=== PATIENT | male | born 1955 | race Caucasian/White ===

== ENCOUNTER 2020-07-17 14:01 | Inpatient (IN) | payer MEDICARE, BC ==
[2020-07-17] MEDS ORDERED: ALBUTEROL NEBULIZED 2.5 MG/3 ML INHALATION STA (14:09)
[2020-07-17 14:21] LABS: Glucose,Whole Blood 218 mg/dL (75-99)
[2020-07-17 14:26] LABS: Basophils # (A) 0.1 k/uL (0-0.2); Basophils % (A) 1 %; Eosinophils # (A) 0.3 k/uL (0-0.7); Eosinophils % (A) 2 %; HCT 37.4 % (39.0-53.0); Lymphocytes % (A) 30 %; MCH 31.8 pg (25.0-35.0); MCV 99.5 fL (80.0-100.0); Mean Platelet Volume 7.9; Monocytes # (A) 0.4 k/uL (0-1.0); Monocytes % (A) 3 %; Neutrophils # (A) 8.2 k/uL (1.3-7.7); Neutrophils % (A) 62 %; Platelet Count 252 k/uL (150-450); RBC 3.76 m/uL (4.30-5.90); RDW 14.2 % (11.5-15.5); WBC 13.2 k/uL (3.8-10.6)
[2020-07-17 14:34] LABS: ALT 228 U/L (4-49); AST 337 U/L (17-59); African American GFR (CKD) >90 (>60 ml/min/1.73 sqM); Albumin 3.6 g/dL (3.5-5.0); Alcohol <10 mg/dL; Alkaline Phosphatase 93 U/L (38-126); Anion Gap 7 mmol/L; Blood Urea Nitrogen 22 mg/dL (9-20); Calcium 8.6 mg/dL (8.4-10.2); Carbon Dioxide 27 mmol/L (22-30); Chloride 101 mmol/L (98-107); Creatine Kinase 248 U/L (55-170); Glucose 177 mg/dL (74-99); Non-African American GFR(CKD) 89 (>60 ml/min/1.73 sqM); Potassium 4.1 mmol/L (3.5-5.1); Sodium 135 mmol/L (137-145); Total Bilirubin 0.5 mg/dL (0.2-1.3); Total Protein 6.4 g/dL (6.3-8.2)
[2020-07-17] MEDS ORDERED: EPINEPHrine 10 ML SYRINGE (0.1 MG/ML) ONE (14:43)
[2020-07-17 14:46] LABS: INR 1.1 (<1.2); Partial Thromboplastin Time 22.5 sec (22.0-30.0); Prothrombin Time 11.1 sec (9.0-12.0)
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
[2020-07-17] MEDS ORDERED: ETOMIDATE 2 MG/ML 10 ML VIAL ONE (15:41)
[2020-07-17] MEDS ORDERED: ROCURONIUM 10 MG/ML (10 ML VIAL) IV ONE (15:41)
[2020-07-17 15:45] LABS: Basophils # (A) 0.1 k/uL (0-0.2); Basophils % (A) 1 %; Eosinophils # (A) 0.2 k/uL (0-0.7); Eosinophils % (A) 1 %; HCT 27.6 % (39.0-53.0); Lymphocytes # (A) 3.5 k/uL (1.0-4.8); Lymphocytes % (A) 18 %; MCH 32.9 pg (25.0-35.0); MCHC 32.3 g/dL (31.0-37.0); MCV 101.7 fL (80.0-100.0); Macrocytosis Slight; Monocytes # (A) 0.6 k/uL (0-1.0); Monocytes % (A) 3 %; Neutrophils # (A) 14.9 k/uL (1.3-7.7); Neutrophils % (A) 76 %; Platelet Count 212 k/uL (150-450); RBC 2.71 m/uL (4.30-5.90); RDW 13.8 % (11.5-15.5); WBC 19.5 k/uL (3.8-10.6)
[2020-07-17 15:49] LABS: HGB 8.9 gm/dL (13.0-17.5)
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
[2020-07-17 16:29] LABS: ABG Base Excess -3.3 mmol/L; ABG HCO3 25 mmol/L (21-25); ABG Oxygen Saturation 99.8 % (94-97); ABG PCO2 68 mmHg (35-45); ABG PO2 176 mmHg (83-108); ABG TCO2 27 mmol/L (19-24); Allen Test Performed? Yes
[2020-07-17 16:30] LABS: ABG PH 7.18 (7.35-7.45)
--- NOTE | 2020-07-17 16:39 | XR ---
EXAMINATION TYPE: XR chest 1V confirm line [facility] DATE OF EXAM: 07/17/2020 COMPARISON: Chest x-ray and CT earlier today. HISTORY: Post intubation. TECHNIQUE: Single portable frontal supine view of the chest is obtained. FINDINGS: Endotracheal tube terminates at mid clavicular level, approximately 4 to 5 cm above maynor . Orogastric tube projects below diaphragm. Low lung volumes with elevated left hemidiaphragm. Increa sing left basilar opacity. Diffuse right lung opacity may be projectional due to supine technique. Sm all right pleural fluid collection extends into apex on supine technique. No pneumothorax bilaterally . Excretion in the collecting systems is seen. Corrects less size stable and upper limits of normal. Displaced posterior right sixth and eighth rib fractures noted. Additional rib fractures noted on recent CT. IMPRESSION: 1. New endotracheal and orogastric tubes satisfactory in position. 2. Low lung volumes. Persistent small right pleural fluid collection. Worsening left basilar atelecta sis. Persistent right lung edema and/or atelectasis.
[2020-07-17] MEDS ORDERED: MIDAZOLAM 1 MG/ML 5 ML VIAL IV STA (16:56)
[2020-07-17] MEDS ORDERED: MIDAZOLAM 2 MG/2 ML VIAL IV STA (16:58)
[2020-07-17] MEDS ORDERED: NOREPINEPHRINE 4 MG in SODIUM CHLORIDE 0.9% 250 ML IV ONE (17:00)
[2020-07-17] MEDS ORDERED: NALOXONE 0.4 MG/ML 1 ML VIAL IV PRN (17:00)
[2020-07-17] MEDS ORDERED: MIDAZOLAM 2 MG/2 ML VIAL IV PRN (17:03)
--- NOTE | 2020-07-17 17:03 | XR ---
EXAMINATION TYPE: XR pelvis AP view DATE OF EXAM: 07/17/2020 COMPARISON: Today HISTORY: Check line placement TECHNIQUE: Single view FINDINGS: There is apparent right femoral catheter with the tip in the right iliac vein. There is con trast in the urinary bladder. There is bilateral hip prosthesis. I see no evidence of pelvic fracture . IMPRESSION: Catheter placement with catheter tip apparently in the right iliac vein. There is no cont rast for verification.
[2020-07-17] MEDS: fentaNYL (PF) 50 MCG/ML 2 ML AMP IVP PRN ×2 (17:04→17:55)
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
[2020-07-17] MEDS ORDERED: propofoL 100 ML IV ONE (17:49)
[2020-07-17 17:56] LABS: Amphetamine Screen,Urine Not Detected (NotDetected); Barbiturate Screen,Urine Not Detected (NotDetected); Benzodiazepines Screen,Urine Not Detected (NotDetected); Cocaine Screen,Urine Not Detected (NotDetected); Methadone Screen, Urine Not Detected (NotDetected); Opiate Screen,Urine Not Detected (NotDetected); Oxycodone Screen, Urine Not Detected (NotDetected); Phencyclidine Screen,Urine Not Detected (NotDetected); Tricyclic Antidepressant,Urine Not Detected (NotDetected); Urn Cannabinoid Scrn Not Detected (NotDetected)
[2020-07-17 17:58] LABS: Appearance,Urine Cloudy (Clear); Bilirubin,Urine Negative (Negative); Blood,Urine Large (Negative); Color,Urine Light Red; Glucose,Urine (UA) Negative (Negative); Ketones,Urine Trace (Negative); Leukocyte Esterase,Urine Small (Negative); Nitrite,Urine Negative (Negative); Protein,Urine 2+ (Negative); RBC,Urine >182 /hpf (0-5); Urobilinogen,Urine <2.0 mg/dL (<2.0); WBC,Urine 147 /hpf (0-5)
[2020-07-17 18:01] LABS: Specific Gravity,Urine >1.050 (1.001-1.035)
[2020-07-17] MEDS ORDERED: TRANEXAMIC ACID 1,000 MG in SODIUM CHLORIDE 0.9% 100 ML IV STA (18:16)
[2020-07-17 18:25] LABS: Glucose,Whole Blood 254 mg/dL (75-99)
[2020-07-17] MEDS: NOREPINEPHRINE 32 MG in SODIUM CHLORIDE 0.9% 218 ML IV SCH (18:37)
[2020-07-17] MEDS ORDERED: SODIUM CHLORIDE 0.9% 1,000 ML IV ONE ×2 (18:54→22:39)
[2020-07-17] MEDS ORDERED: ALBUMIN HUMAN 25% 50 ML in EMPTY BAG 1 BAG IVPB ONE (18:55)
[2020-07-17] MEDS ORDERED: LIDOCAINE 1% INJ 10MG/ML (20 ML MDV) ONE (19:07)
[2020-07-17 19:47] LABS: Anisocytosis Slight; HCT 36.8 % (39.0-53.0); MCH 30.3 pg (25.0-35.0); MCHC 32.4 g/dL (31.0-37.0); Mean Platelet Volume 8.3; Platelet Count 211 k/uL (150-450); RBC 3.94 m/uL (4.30-5.90); RDW 17.7 % (11.5-15.5); WBC 28.2 k/uL (3.8-10.6)
[2020-07-17 19:53] LABS: ALT 164 U/L (4-49); AST 223 U/L (17-59); African American GFR (CKD) >90 (>60 ml/min/1.73 sqM); Albumin 2.7 g/dL (3.5-5.0); Alkaline Phosphatase 74 U/L (38-126); Anion Gap 6 mmol/L; Blood Urea Nitrogen 22 mg/dL (9-20); Calcium 7.4 mg/dL (8.4-10.2); Carbon Dioxide 22 mmol/L (22-30); Chloride 106 mmol/L (98-107); Glucose 246 mg/dL (74-99); Magnesium 1.5 mg/dL (1.6-2.3); Non-African American GFR(CKD) 80 (>60 ml/min/1.73 sqM); Potassium 4.5 mmol/L (3.5-5.1); Sodium 134 mmol/L (137-145); Total Bilirubin 1.7 mg/dL (0.2-1.3)
[2020-07-17 20:08] LABS: HGB 11.9 gm/dL (13.0-17.5); MCV 93.5 fL (80.0-100.0)
[2020-07-17] MEDS: SODIUM CHLORIDE 0.9% 50 ML with VASOPRESSIN 20 UNIT IVPB SCH ×2 (21:09)
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
[2020-07-17] MEDS: PANTOPRAZOLE 40 MG/10 ML VIAL IVP SCH (21:33)
[2020-07-17 21:52] LABS: ABG Base Excess -6.3 mmol/L; ABG HCO3 21 mmol/L (21-25); ABG Oxygen Saturation 95.8 % (94-97); ABG PCO2 51 mmHg (35-45); ABG PH 7.23 (7.35-7.45); ABG PO2 82 mmHg (83-108); ABG TCO2 23 mmol/L (19-24); Allen Test Performed? Yes
[2020-07-17] MEDS: PIPERACILLIN-TAZOBACTAM 3.375 GM in SODIUM CHLORIDE 0.9% 100 ML IVPB SCH (22:05)
[2020-07-17] MEDS: SODIUM CHLORIDE 0.9% 1,000 ML IV SCH (22:06)
[2020-07-18 00:02] LABS: Glucose,Whole Blood 216 mg/dL (75-99)
[2020-07-18] MEDS: INSULIN ASPART (NovoLOG) 100 UNIT/ML VIAL SQ SCH ×5 (00:06→19:58)
[2020-07-18] MEDS: MAGNESIUM SULFATE-D5W PMX 1 GM in DEXTROSE/WATER 1 100ML.BAG IVPB SCH ×4 (00:34→09:27)
[2020-07-18] MEDS: SODIUM CHLORIDE 0.9% 50 ML with VASOPRESSIN 20 UNIT IVPB SCH ×4 (00:43→15:42)
[2020-07-18 02:06] LABS: Anisocytosis Slight; HCT 32.6 % (39.0-53.0); HGB 11.2 gm/dL (13.0-17.5); MCH 31.4 pg (25.0-35.0); MCHC 34.3 g/dL (31.0-37.0); MCV 91.6 fL (80.0-100.0); Mean Platelet Volume 9.1; Platelet Count 172 k/uL (150-450); RBC 3.56 m/uL (4.30-5.90); RDW 18.5 % (11.5-15.5); WBC 17.5 k/uL (3.8-10.6)
[2020-07-18] MEDS: SODIUM CHLORIDE 0.9% 1,000 ML IV SCH ×4 (03:27→19:44)
[2020-07-18 04:58] LABS: ABG Base Excess -3.8 mmol/L; ABG HCO3 21 mmol/L (21-25); ABG Oxygen Saturation 96.5 % (94-97); ABG PCO2 32 mmHg (35-45); ABG PH 7.42 (7.35-7.45); ABG PO2 81 mmHg (83-108); ABG TCO2 22 mmol/L (19-24)
[2020-07-18] MEDS: PIPERACILLIN-TAZOBACTAM 3.375 GM in SODIUM CHLORIDE 0.9% 100 ML IVPB SCH ×3 (05:12→21:05)
[2020-07-18] MEDS: NOREPINEPHRINE 32 MG in SODIUM CHLORIDE 0.9% 218 ML IV SCH ×2 (05:12→18:03)
[2020-07-18 05:24] LABS: Allen Test Performed? no
[2020-07-18 05:36] LABS: Glucose,Whole Blood 242 mg/dL (75-99)
[2020-07-18 06:57] LABS: African American GFR (CKD) >90 (>60 ml/min/1.73 sqM); Anion Gap 9 mmol/L; Blood Urea Nitrogen 24 mg/dL (9-20); Calcium 7.7 mg/dL (8.4-10.2); Carbon Dioxide 17 mmol/L (22-30); Chloride 108 mmol/L (98-107); Glucose 231 mg/dL (74-99); Non-African American GFR(CKD) 78 (>60 ml/min/1.73 sqM); Potassium 5.2 mmol/L (3.5-5.1); Sodium 134 mmol/L (137-145)
[2020-07-18] MEDS: IPRATROPIUM-ALBUTEROL 3 ML NEB INHALATION SCH ×4 (07:08→20:03)
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
[2020-07-18] MEDS ORDERED: SODIUM CHLORIDE 0.9% 1,000 ML IV ONE (09:25)
--- NOTE | 2020-07-18 09:25 | XR ---
EXAMINATION TYPE: XR chest 1V portable DATE OF EXAM: 07/18/2020 COMPARISON: Prior chest x-ray and CT 07/17/2020 HISTORY: Intubated TECHNIQUE: Single frontal view of the chest is obtained. FINDINGS: Endotracheal tube is superimposed over appropriate position as is the orogastric tube. The re are overlying cardiac leads. No pneumothorax. Patchy bibasilar density persists. Cardiac mediastin al silhouette, pulmonary vascularity and celeste not significantly changed. IMPRESSION: Probable subsegmental basilar atelectatic changes, correlate to exclude pneumonia or annie ma, there is a right pleural effusion.
[2020-07-18] MEDS: LEVOTHYROXINE IVP 100 MCG/5 ML VIAL IV SCH (09:27)
[2020-07-18] MEDS: PANTOPRAZOLE 40 MG/10 ML VIAL IVP SCH (09:27)
[2020-07-18] MEDS: CHLORHEXIDINE GLUCONATE 15 ML CUP MUCOUS MEM SCH ×2 (09:27→21:04)
[2020-07-18 09:28] LABS: Anisocytosis Slight; HCT 30.6 % (39.0-53.0); HGB 10.4 gm/dL (13.0-17.5); MCH 30.8 pg (25.0-35.0); MCHC 33.9 g/dL (31.0-37.0); Mean Platelet Volume 8.5; Platelet Count 165 k/uL (150-450); RBC 3.36 m/uL (4.30-5.90); RDW 19.1 % (11.5-15.5); WBC 12.8 k/uL (3.8-10.6)
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
[2020-07-18 11:39] LABS: Glucose,Whole Blood 271 mg/dL (75-99)
--- NOTE | 2020-07-18 11:41 | XR ---
Left femur and left hip HISTORY: Leg shortening, pain Correlated to previous exam AP pelvis 07/17/2020 Frontal view of the left hip single image, frontal and lateral views of the left femur on 4 images Patient is status post left hip arthroplasty. Remodeling along the acetabulum is questioned, correlat ion with postop exam may be of benefit. Heterotopic new bone formation is present. There is thinning of the cortical bone along the lateral margin of the proximal left femur which is indeterminate. No a cute fracture or dislocation is evident. Some overlying metallic densities present over the soft tiss ues toward the midline. There are vascular calcifications present. Cross table lateral view is somewh at limited. Spurring present at the patellofemoral joint. There is postop change the opposite hip als o present. IMPRESSION: No acute abnormality. Additional findings above.
--- NOTE | 2020-07-18 12:36 | ECHOF ---
Referral Reason:hypotension MEASUREMENTS -------- HEIGHT: 165.1 cm WEIGHT: 108.0 kg BP: RVIDd: 3.8 cm (< 3.3) IVSd: 1.6 cm (0.6 - 1.1) LVIDd: 4.5 cm (3.9 - 5.3) LVPWd: 1.5 cm (0.6 - 1.1) IVSs: 1.9 cm LVIDs: 3.1 cm LVPWs: 1.6 cm Ao Diam: 3.5 cm (2.0 - 3.7) AV Cusp: 2.0 cm (1.5 - 2.6) MV EXCURSION: 19.523 mm (> 18.000) MV EF SLOPE: 60 mm/s (70 - 150) EPSS: 0.5 cm MV E Frank: 0.43 m/s MV DecT: 328 ms MV A Frank: 0.77 m/s MV E/A Ratio: 0.56 RAP: 5.00 mmHg RVSP: 21.36 mmHg FINDINGS -------- Undetermined rhythm. This was a techncally difficult study with suboptimal views, , Lumason utilized for enhancement of im ages. The left ventricular size is normal. There is moderate concentric left ventricular hypertrophy. O verall left ventricular systolic function is low-normal with, an EF between 50 - 55 %. The right ventricle is moderate to severely enlarged. The left atrial size is normal. The right atrial size is normal. The aortic root size is normal. There is no pericardial effusion. CONCLUSIONS -------- 1. This was a techncally difficult study with suboptimal views, , Lumason utilized for enhancement of images. 2. The left ventricular size is normal. 3. There is moderate concentric left ventricular hypertrophy. 4. Overall left ventricular systolic function is low-normal with, an EF between 50 - 55 %. 5. The right ventricle is moderate to severely enlarged. 6. The left atrial size is normal. 7. The right atrial size is normal. 8. There is no pericardial effusion. [employer]: Naz Kyle RDCS
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
[2020-07-18] MEDS ORDERED: IOPAMIDOL CONTRAST (ORAL USE) VIAL PO PRN (13:36)
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
[2020-07-18] MEDS: fentaNYL (PF) 50 MCG/ML 2 ML AMP IVP PRN ×2 (15:05→19:59)
[2020-07-18] MEDS: HYDROCORTISONE SUCCINATE 100 MG/2 ML VIAL IV SCH (15:45)
[2020-07-18 16:23] LABS: Glucose,Whole Blood 228 mg/dL (75-99)
[2020-07-18 17:46] LABS: Glucose,Whole Blood 255 mg/dL (75-99)
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
[2020-07-18 19:54] LABS: Glucose,Whole Blood 214 mg/dL (75-99)
[2020-07-18] MEDS ORDERED: INSULIN DETEMIR (LEVEMIR) 100 UNIT/ML SYR SQ SCH (21:00)
[2020-07-18 22:12] LABS: Anisocytosis Slight; HCT 25.6 % (39.0-53.0); MCH 30.5 pg (25.0-35.0); MCV 89.8 fL (80.0-100.0); Mean Platelet Volume 8.7; Platelet Count 136 k/uL (150-450); RBC 2.85 m/uL (4.30-5.90); RDW 18.8 % (11.5-15.5); WBC 10.9 k/uL (3.8-10.6)
[2020-07-18 22:40] LABS: HGB 8.7 gm/dL (13.0-17.5)
[2020-07-19 00:08] LABS: Glucose,Whole Blood 221 mg/dL (75-99)
[2020-07-19] MEDS: HYDROCORTISONE SUCCINATE 100 MG/2 ML VIAL IV SCH ×4 (00:14→23:40)
[2020-07-19] MEDS: SODIUM CHLORIDE 0.9% 1,000 ML IV SCH ×3 (00:14→11:37)
[2020-07-19] MEDS: INSULIN ASPART (NovoLOG) 100 UNIT/ML VIAL SQ SCH ×6 (00:15→20:32)
[2020-07-19 04:08] LABS: Glucose,Whole Blood 218 mg/dL (75-99)
[2020-07-19 04:11] LABS: Hemoglobin A1C 6.5 % (4.0-6.0)
[2020-07-19] MEDS: PIPERACILLIN-TAZOBACTAM 3.375 GM in SODIUM CHLORIDE 0.9% 100 ML IVPB SCH ×3 (04:13→20:35)
[2020-07-19] MEDS: fentaNYL (PF) 50 MCG/ML 2 ML AMP IVP PRN (04:18)
[2020-07-19 05:12] LABS: ABG Base Excess -1.9 mmol/L; ABG HCO3 22 mmol/L (21-25); ABG Oxygen Saturation 99.2 % (94-97); ABG PCO2 32 mmHg (35-45); ABG PH 7.45 (7.35-7.45); ABG PO2 101 mmHg (83-108); ABG TCO2 23 mmol/L (19-24)
[2020-07-19] MEDS: SODIUM CHLORIDE 0.9% 50 ML with VASOPRESSIN 20 UNIT IVPB SCH ×2 (05:35)
[2020-07-19 05:46] LABS: Anisocytosis Slight; HCT 24.8 % (39.0-53.0); HGB 8.4 gm/dL (13.0-17.5); MCH 30.8 pg (25.0-35.0); MCHC 33.9 g/dL (31.0-37.0); MCV 90.9 fL (80.0-100.0); Platelet Count 123 k/uL (150-450); RBC 2.72 m/uL (4.30-5.90); RDW 18.5 % (11.5-15.5); WBC 9.3 k/uL (3.8-10.6)
[2020-07-19 05:49] LABS: Allen Test Performed? no
[2020-07-19 06:01] LABS: ALT 67 U/L (4-49); AST 49 U/L (17-59); African American GFR (CKD) >90 (>60 ml/min/1.73 sqM); Albumin 2.3 g/dL (3.5-5.0); Alkaline Phosphatase 64 U/L (38-126); Anion Gap 4 mmol/L; Blood Urea Nitrogen 18 mg/dL (9-20); Calcium 7.6 mg/dL (8.4-10.2); Carbon Dioxide 21 mmol/L (22-30); Chloride 108 mmol/L (98-107); Glucose 186 mg/dL (74-99); Non-African American GFR(CKD) >90 (>60 ml/min/1.73 sqM); Potassium 3.7 mmol/L (3.5-5.1); Sodium 133 mmol/L (137-145); Total Bilirubin 0.7 mg/dL (0.2-1.3); Total Protein 4.5 g/dL (6.3-8.2)
[2020-07-19 07:17] LABS: Anisocytosis Slight; Basophils % (A) 0 %; Eosinophils % (A) 0 %; HCT 23.9 % (39.0-53.0); HGB 8.3 gm/dL (13.0-17.5); Lymphocytes % (A) 12 %; MCH 31.6 pg (25.0-35.0); MCHC 34.8 g/dL (31.0-37.0); MCV 90.7 fL (80.0-100.0); Mean Platelet Volume 8.2; Monocytes # (A) 0.5 k/uL (0-1.0); Monocytes % (A) 6 %; Neutrophils # (A) 6.9 k/uL (1.3-7.7); Neutrophils % (A) 81 %; Platelet Count 124 k/uL (150-450); RBC 2.63 m/uL (4.30-5.90); RDW 18.6 % (11.5-15.5); WBC 8.5 k/uL (3.8-10.6)
[2020-07-19 07:20] LABS: Potassium 3.5 mmol/L (3.5-5.1)
[2020-07-19 07:21] LABS: African American GFR (CKD) >90 (>60 ml/min/1.73 sqM); Anion Gap 2 mmol/L; Blood Urea Nitrogen 18 mg/dL (9-20); Calcium 7.4 mg/dL (8.4-10.2); Carbon Dioxide 22 mmol/L (22-30); Chloride 110 mmol/L (98-107); Glucose 179 mg/dL (74-99); Non-African American GFR(CKD) >90 (>60 ml/min/1.73 sqM); Sodium 134 mmol/L (137-145)
[2020-07-19] MEDS: IPRATROPIUM-ALBUTEROL 3 ML NEB INHALATION SCH ×4 (08:00→19:59)
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
--- NOTE | 2020-07-19 08:26 | XR ---
EXAMINATION TYPE: XR chest 1V portable DATE OF EXAM: 07/19/2020 COMPARISON: Prior chest x-ray 07/18/2020 HISTORY: Intubated TECHNIQUE: Single frontal view of the chest is obtained. FINDINGS: Endotracheal tube and orogastric tube are overlying appropriate positions. There are overl celena cardiac leads. There is no pneumothorax. Pleural parenchymal changes are similar, heart is uncha nged. Patient is rotated. IMPRESSION: There is no significant interval change. Basilar atelectasis associated effusion versus edema or pneumonia.
[2020-07-19] MEDS ORDERED: Potassium Replacement Protocol 1 EACH MISC MISCELLANE PRN (08:27)
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
[2020-07-19 08:56] LABS: Glucose,Whole Blood 185 mg/dL (75-99)
[2020-07-19] MEDS: LEVOTHYROXINE IVP 100 MCG/5 ML VIAL IV SCH (09:09)
[2020-07-19] MEDS: CHLORHEXIDINE GLUCONATE 15 ML CUP MUCOUS MEM SCH ×2 (09:09→20:33)
[2020-07-19] MEDS: PANTOPRAZOLE 40 MG/10 ML VIAL IVP SCH (09:09)
[2020-07-19] MEDS: POTASSIUM BICARBONATE/CIT AC 20 MEQ TABLET.EFF NG-TUBE SCH ×2 (09:11→11:56)
--- NOTE | 2020-07-19 11:15 | P.PN ---
Progress Note - Text Progress Note Date: 07/19/20 Patient had an echo cardiac gram with Doppler study performed yesterday which revealed a normal left ventricular systolic function with no evidence of pericardial effusion. We will follow this patient with you on an as-needed basis only, please don't hesitate to call with any questions. We will make a follow-up appointment with Dr. Farfan 4 weeks post discharge. DNP note has been reviewed, I agree with a documented findings and plan of care. Patient was seen and examined.
[2020-07-19 12:03] LABS: Glucose,Whole Blood 164 mg/dL (75-99)
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
[2020-07-19 16:37] LABS: Glucose,Whole Blood 149 mg/dL (75-99)
[2020-07-19 20:29] LABS: Glucose,Whole Blood 133 mg/dL (75-99)
[2020-07-19] MEDS: INSULIN DETEMIR (LEVEMIR) 100 UNIT/ML SYR SQ SCH (20:33)
[2020-07-19 23:48] LABS: Glucose,Whole Blood 123 mg/dL (75-99)
[2020-07-20] MEDS: INSULIN ASPART (NovoLOG) 100 UNIT/ML VIAL SQ SCH ×6 (02:09→20:22)
[2020-07-20 04:00] LABS: Glucose,Whole Blood 175 mg/dL (75-99)
[2020-07-20 04:13] LABS: Anisocytosis Slight; Basophils % (A) 0 %; Eosinophils # (A) 0.1 k/uL (0-0.7); Eosinophils % (A) 1 %; HCT 23.9 % (39.0-53.0); Lymphocytes # (A) 0.7 k/uL (1.0-4.8); Lymphocytes % (A) 7 %; MCH 30.6 pg (25.0-35.0); MCHC 33.3 g/dL (31.0-37.0); MCV 91.9 fL (80.0-100.0); Mean Platelet Volume 9.5; Monocytes # (A) 0.4 k/uL (0-1.0); Monocytes % (A) 4 %; Neutrophils # (A) 8.6 k/uL (1.3-7.7); Neutrophils % (A) 87 %; Platelet Count 130 k/uL (150-450); RDW 18.3 % (11.5-15.5); WBC 9.8 k/uL (3.8-10.6)
[2020-07-20 04:31] LABS: African American GFR (CKD) >90 (>60 ml/min/1.73 sqM); Anion Gap 3 mmol/L; Blood Urea Nitrogen 16 mg/dL (9-20); Carbon Dioxide 22 mmol/L (22-30); Chloride 113 mmol/L (98-107); Glucose 144 mg/dL (74-99); Non-African American GFR(CKD) >90 (>60 ml/min/1.73 sqM); Potassium 3.5 mmol/L (3.5-5.1); Sodium 138 mmol/L (137-145)
[2020-07-20] MEDS: PIPERACILLIN-TAZOBACTAM 3.375 GM in SODIUM CHLORIDE 0.9% 100 ML IVPB SCH ×3 (05:04→20:00)
[2020-07-20 05:31] LABS: ABG Base Excess -0.2 mmol/L; ABG HCO3 24 mmol/L (21-25); ABG Oxygen Saturation 97.1 % (94-97); ABG PCO2 35 mmHg (35-45); ABG PH 7.44 (7.35-7.45); ABG PO2 75 mmHg (83-108); ABG TCO2 25 mmol/L (19-24); Allen Test Performed? Yes
[2020-07-20] MEDS: POTASSIUM BICARBONATE/CIT AC 20 MEQ TABLET.EFF NG-TUBE SCH ×2 (05:53→06:50)
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
[2020-07-20] MEDS: fentaNYL (PF) 50 MCG/ML 2 ML AMP IVP PRN (07:54)
[2020-07-20] MEDS: IPRATROPIUM-ALBUTEROL 3 ML NEB INHALATION SCH ×4 (07:59→20:35)
[2020-07-20 08:48] LABS: Glucose,Whole Blood 142 mg/dL (75-99)
[2020-07-20] MEDS: CHLORHEXIDINE GLUCONATE 15 ML CUP MUCOUS MEM SCH ×2 (10:37→20:00)
[2020-07-20] MEDS: HYDROCORTISONE SUCCINATE 100 MG/2 ML VIAL IV SCH ×3 (10:37→23:00)
[2020-07-20] MEDS: PANTOPRAZOLE 40 MG/10 ML VIAL IVP SCH (10:37)
[2020-07-20] MEDS: LEVOTHYROXINE IVP 100 MCG/5 ML VIAL IV SCH (10:39)
[2020-07-20] MEDS: SODIUM CHLORIDE 0.9% 1,000 ML IV SCH (10:46)
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
[2020-07-20 12:29] LABS: Glucose,Whole Blood 123 mg/dL (75-99)
[2020-07-20] MEDS ORDERED: Potassium Replacement Protocol 1 EACH MISC MISCELLANE PRN (15:42)
[2020-07-20] MEDS ORDERED: POTASSIUM BICARBONATE/CIT AC 20 MEQ TABLET.EFF NG-TUBE SCH (16:00)
[2020-07-20 16:06] LABS: Glucose,Whole Blood 152 mg/dL (75-99)
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
[2020-07-20] MEDS: NOREPINEPHRINE 32 MG in SODIUM CHLORIDE 0.9% 218 ML IV SCH (18:36)
[2020-07-20 20:14] LABS: Glucose,Whole Blood 157 mg/dL (75-99)
[2020-07-20] MEDS: INSULIN DETEMIR (LEVEMIR) 100 UNIT/ML SYR SQ SCH (20:23)
[2020-07-21 00:04] LABS: Glucose,Whole Blood 152 mg/dL (75-99)
[2020-07-21] MEDS: INSULIN ASPART (NovoLOG) 100 UNIT/ML VIAL SQ SCH ×7 (00:09→23:36)
[2020-07-21] MEDS: fentaNYL (PF) 50 MCG/ML 2 ML AMP IVP PRN ×2 (02:16→21:44)
[2020-07-21 03:47] LABS: Glucose,Whole Blood 155 mg/dL (75-99)
[2020-07-21 04:22] LABS: Anisocytosis Slight; Basophils % (A) 0 %; Eosinophils % (A) 0 %; HCT 23.7 % (39.0-53.0); HGB 7.8 gm/dL (13.0-17.5); Lymphocytes # (A) 0.7 k/uL (1.0-4.8); Lymphocytes % (A) 9 %; MCH 31.1 pg (25.0-35.0); MCHC 32.9 g/dL (31.0-37.0); MCV 94.3 fL (80.0-100.0); Mean Platelet Volume 8.6; Monocytes # (A) 0.3 k/uL (0-1.0); Monocytes % (A) 4 %; Neutrophils # (A) 6.6 k/uL (1.3-7.7); Neutrophils % (A) 85 %; Platelet Count 130 k/uL (150-450); RBC 2.52 m/uL (4.30-5.90); RDW 18.7 % (11.5-15.5); WBC 7.7 k/uL (3.8-10.6)
[2020-07-21 04:26] LABS: Glucose,Whole Blood 144 mg/dL (75-99)
--- NOTE | 2020-07-21 04:30 | XR ---
EXAM: XR Chest, 1 View CLINICAL HISTORY: ITS.REASON XR Reason: SOB TECHNIQUE: Frontal view of the chest. COMPARISON: Chest x-ray dated 07/20/2020 FINDINGS: Lungs: Diffuse airspace opacities which may represent an infectious process. Pleural space: Small to moderate bilateral pleural effusions. Heart: Unremarkable. Mediastinum: Unremarkable. Bones/joints: Unremarkable. Tubes, lines and devices: Endotracheal tube with tip at the clavicular heads. Enteric tube is seen with tip in the gastric fundus. IMPRESSION: 1. Endotracheal tube with tip at the clavicular heads. 2. Enteric tube is seen with tip in the gastric fundus. 3. Diffuse airspace opacities which may represent an infectious process. 4. Small to moderate bilateral pleural effusions.
[2020-07-21 04:33] LABS: African American GFR (CKD) >90 (>60 ml/min/1.73 sqM); Anion Gap 2 mmol/L; Blood Urea Nitrogen 17 mg/dL (9-20); Calcium 8.2 mg/dL (8.4-10.2); Carbon Dioxide 25 mmol/L (22-30); Chloride 112 mmol/L (98-107); Glucose 133 mg/dL (74-99); Non-African American GFR(CKD) >90 (>60 ml/min/1.73 sqM); Potassium 4.1 mmol/L (3.5-5.1); Sodium 139 mmol/L (137-145)
[2020-07-21 04:34] LABS: ABG HCO3 26 mmol/L (21-25); ABG Oxygen Saturation 94.4 % (94-97); ABG PCO2 41 mmHg (35-45); ABG PO2 66 mmHg (83-108); ABG TCO2 27 mmol/L (19-24); Allen Test Performed? Yes
[2020-07-21] MEDS: PIPERACILLIN-TAZOBACTAM 3.375 GM in SODIUM CHLORIDE 0.9% 100 ML IVPB SCH ×3 (05:14→20:21)
[2020-07-21] MEDS: SODIUM CHLORIDE 0.9% 1,000 ML IV SCH (05:15)
[2020-07-21 07:59] LABS: Glucose,Whole Blood 138 mg/dL (75-99)
[2020-07-21] MEDS: HYDROCORTISONE SUCCINATE 100 MG/2 ML VIAL IV SCH (08:15)
[2020-07-21] MEDS: CHLORHEXIDINE GLUCONATE 15 ML CUP MUCOUS MEM SCH ×2 (08:15→20:20)
[2020-07-21] MEDS: PANTOPRAZOLE 40 MG/10 ML VIAL IVP SCH (08:15)
[2020-07-21] MEDS: LEVOTHYROXINE IVP 100 MCG/5 ML VIAL IV SCH (08:15)
[2020-07-21] MEDS: IPRATROPIUM-ALBUTEROL 3 ML NEB INHALATION SCH ×4 (08:31→19:34)
[2020-07-21] MEDS: FUROSEMIDE 10 MG/ML 4 ML VIAL IV SCH ×2 (09:19→20:20)
[2020-07-21 11:55] LABS: Glucose,Whole Blood 133 mg/dL (75-99)
[2020-07-21 12:05] LABS: ABG Base Excess 2.7 mmol/L; ABG HCO3 28 mmol/L (21-25); ABG Oxygen Saturation 92.1 % (94-97); ABG PCO2 44 mmHg (35-45); ABG PO2 61 mmHg (83-108); ABG TCO2 29 mmol/L (19-24); Allen Test Performed? Yes
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
[2020-07-21] MEDS: NOREPINEPHRINE 32 MG in SODIUM CHLORIDE 0.9% 218 ML IV SCH (15:33)
[2020-07-21] MEDS ORDERED: Potassium Replacement Protocol 1 EACH MISC MISCELLANE PRN (16:03)
[2020-07-21 16:07] LABS: Glucose,Whole Blood 161 mg/dL (75-99)
[2020-07-21] MEDS: POTASSIUM BICARBONATE/CIT AC 20 MEQ TABLET.EFF NG-TUBE SCH ×2 (16:47→18:07)
[2020-07-21 20:15] LABS: Glucose,Whole Blood 144 mg/dL (75-99)
[2020-07-21] MEDS: INSULIN DETEMIR (LEVEMIR) 100 UNIT/ML SYR SQ SCH (20:42)
[2020-07-21] MEDS ORDERED: POTASSIUM BICARBONATE/CIT AC 20 MEQ TABLET.EFF PO ONE (21:00)
[2020-07-21 23:33] LABS: Glucose,Whole Blood 136 mg/dL (75-99)
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
[2020-07-22 03:54] LABS: Glucose,Whole Blood 118 mg/dL (75-99)
[2020-07-22] MEDS: INSULIN ASPART (NovoLOG) 100 UNIT/ML VIAL SQ SCH ×5 (03:55→20:06)
[2020-07-22] MEDS: PIPERACILLIN-TAZOBACTAM 3.375 GM in SODIUM CHLORIDE 0.9% 100 ML IVPB SCH ×3 (04:54→21:03)
[2020-07-22] MEDS: SODIUM CHLORIDE 0.9% 1,000 ML IV SCH (04:56)
[2020-07-22 05:08] LABS: Anisocytosis Slight; Basophils % (A) 0 %; Eosinophils # (A) 0.2 k/uL (0-0.7); Eosinophils % (A) 2 %; HCT 24.9 % (39.0-53.0); HGB 8.2 gm/dL (13.0-17.5); Hypochromasia Slight; Lymphocytes # (A) 1.5 k/uL (1.0-4.8); Lymphocytes % (A) 22 %; MCH 31.2 pg (25.0-35.0); MCHC 32.7 g/dL (31.0-37.0); MCV 95.4 fL (80.0-100.0); Macrocytosis Slight; Mean Platelet Volume 9.7; Monocytes # (A) 0.4 k/uL (0-1.0); Monocytes % (A) 6 %; Neutrophils # (A) 4.6 k/uL (1.3-7.7); Neutrophils % (A) 67 %; Platelet Count 142 k/uL (150-450); RBC 2.61 m/uL (4.30-5.90); RDW 19.2 % (11.5-15.5); WBC 6.9 k/uL (3.8-10.6)
[2020-07-22 05:19] LABS: African American GFR (CKD) >90 (>60 ml/min/1.73 sqM); Anion Gap -1 mmol/L; Blood Urea Nitrogen 20 mg/dL (9-20); Calcium 8.3 mg/dL (8.4-10.2); Carbon Dioxide 30 mmol/L (22-30); Chloride 111 mmol/L (98-107); Glucose 133 mg/dL (74-99); Non-African American GFR(CKD) >90 (>60 ml/min/1.73 sqM); Potassium 3.4 mmol/L (3.5-5.1); Sodium 140 mmol/L (137-145)
[2020-07-22] MEDS ORDERED: Potassium Replacement Protocol 1 EACH MISC MISCELLANE PRN (05:57)
[2020-07-22] MEDS: POTASSIUM CHLORIDE 20 MEQ in WATER FOR INJECTION 1 100ML.BAG IVPB SCH ×2 (06:12→08:13)
[2020-07-22 06:18] LABS: ABG Base Excess 5.5 mmol/L; ABG HCO3 30 mmol/L (21-25); ABG Oxygen Saturation 97.7 % (94-97); ABG PCO2 45 mmHg (35-45); ABG PH 7.43 (7.35-7.45); ABG PO2 82 mmHg (83-108); ABG TCO2 31 mmol/L (19-24)
[2020-07-22] MEDS: IPRATROPIUM-ALBUTEROL 3 ML NEB INHALATION SCH ×4 (07:52→19:43)
[2020-07-22 08:14] LABS: Glucose,Whole Blood 128 mg/dL (75-99)
[2020-07-22 08:51] LABS: Allen Test Performed? no
[2020-07-22] MEDS: FUROSEMIDE 10 MG/ML 4 ML VIAL IV SCH ×2 (09:01→21:02)
[2020-07-22] MEDS: PANTOPRAZOLE 40 MG/10 ML VIAL IVP SCH (09:01)
[2020-07-22] MEDS: LEVOTHYROXINE IVP 100 MCG/5 ML VIAL IV SCH (09:01)
[2020-07-22] MEDS: CHLORHEXIDINE GLUCONATE 15 ML CUP MUCOUS MEM SCH ×2 (09:01→21:03)
--- NOTE | 2020-07-22 09:47 | XR ---
EXAMINATION TYPE: XR chest 1V portable DATE OF EXAM: 07/22/2020 COMPARISON: 07/21/2020 HISTORY: Shortness of breath TECHNIQUE: Single frontal view of the chest is obtained. FINDINGS: Diffuse airspace disease with bilateral effusion. ET and NG tube stable. Hypertrophic and degenerative change of the spine. No pneumothorax. Heart size prominent. IMPRESSION: Stable diffuse airspace disease correlate for CHF, ARDS or diffuse pneumonia.
--- NOTE | 2020-07-22 10:21 | US ---
EXAMINATION TYPE: US chest DATE OF EXAM: 07/22/2020 COMPARISON: NONE CLINICAL HISTORY: Markings for thoracentesis by pulmonary staff. Bilateral pleural effusion TECHNIQUE: Targeted ultrasound of the posterior lower bilateral hemithoraces EXAM MEASUREMENTS: Right Pleural Effusion pocket size: 3.0 cm Right skin surface to fluid distance: 4.0 cm Left Pleural Effusion pocket size: 4.5 cm Left skin surface to fluid distance: 3.7 cm Right side MARKED for possible thoracentesis outside the dept. Left side MARKED for possible thoracentesis outside the dept. Pulmonologists are able to review the images in the patient?s EMR. IMPRESSIONS: Small bilateral pleural effusions
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
[2020-07-22] MEDS ORDERED: MINERAL OIL-WHITE PETROLATUM 120 GM JAR TOPICAL PRN (11:12)
[2020-07-22 12:01] LABS: Glucose,Whole Blood 128 mg/dL (75-99)
[2020-07-22] MEDS: NOREPINEPHRINE 32 MG in SODIUM CHLORIDE 0.9% 218 ML IV SCH (12:11)
[2020-07-22] MEDS: POTASSIUM BICARBONATE/CIT AC 20 MEQ TABLET.EFF NG-TUBE SCH ×2 (13:33→14:17)
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
[2020-07-22 15:59] LABS: Glucose,Whole Blood 110 mg/dL (75-99)
[2020-07-22] MEDS ORDERED: POTASSIUM BICARBONATE/CIT AC 20 MEQ TABLET.EFF NG-TUBE SCH (19:00)
[2020-07-22 20:01] LABS: Glucose,Whole Blood 168 mg/dL (75-99)
[2020-07-22] MEDS: INSULIN DETEMIR (LEVEMIR) 100 UNIT/ML SYR SQ SCH (21:04)
[2020-07-22] MEDS ORDERED: POTASSIUM BICARBONATE/CIT AC 20 MEQ TABLET.EFF PO ONE (22:37)
[2020-07-23] LABS: Glucose,Whole Blood 161 mg/dL (75-99)
[2020-07-23] MEDS: INSULIN ASPART (NovoLOG) 100 UNIT/ML VIAL SQ SCH ×6 (00:01→23:59)
[2020-07-23 04:09] LABS: Glucose,Whole Blood 144 mg/dL (75-99)
[2020-07-23] MEDS: SODIUM CHLORIDE 0.9% 1,000 ML IV SCH (04:11)
[2020-07-23] MEDS: PIPERACILLIN-TAZOBACTAM 3.375 GM in SODIUM CHLORIDE 0.9% 100 ML IVPB SCH ×3 (04:47→21:35)
[2020-07-23 05:06] LABS: Anisocytosis Slight; HCT 24.4 % (39.0-53.0); HGB 8.1 gm/dL (13.0-17.5); Hypochromasia Slight; MCHC 33.1 g/dL (31.0-37.0); MCV 96.5 fL (80.0-100.0); Macrocytosis Slight; Mean Platelet Volume 9.9; Platelet Count 159 k/uL (150-450); RBC 2.53 m/uL (4.30-5.90); RDW 19.4 % (11.5-15.5); WBC 8.9 k/uL (3.8-10.6)
[2020-07-23 05:21] LABS: ALT 34 U/L (4-49); AST 32 U/L (17-59); African American GFR (CKD) >90 (>60 ml/min/1.73 sqM); Albumin 2.7 g/dL (3.5-5.0); Alkaline Phosphatase 75 U/L (38-126); Anion Gap 1 mmol/L; Blood Urea Nitrogen 21 mg/dL (9-20); Calcium 8.3 mg/dL (8.4-10.2); Carbon Dioxide 33 mmol/L (22-30); Chloride 106 mmol/L (98-107); Glucose 147 mg/dL (74-99); Non-African American GFR(CKD) >90 (>60 ml/min/1.73 sqM); Potassium 3.4 mmol/L (3.5-5.1); Sodium 140 mmol/L (137-145); Total Bilirubin 2.5 mg/dL (0.2-1.3); Total Protein 5.2 g/dL (6.3-8.2)
[2020-07-23] MEDS ORDERED: POTASSIUM BICARBONATE/CIT AC 20 MEQ TABLET.EFF PO ONE (05:25)
[2020-07-23] MEDS: IPRATROPIUM-ALBUTEROL 3 ML NEB INHALATION SCH ×4 (07:40→19:50)
[2020-07-23 07:45] LABS: ABG HCO3 35 mmol/L (21-25); ABG Oxygen Saturation 93.4 % (94-97); ABG PCO2 48 mmHg (35-45); ABG PH 7.47 (7.35-7.45); ABG PO2 61 mmHg (83-108); ABG TCO2 36 mmol/L (19-24)
[2020-07-23 07:47] LABS: Allen Test Performed? no
[2020-07-23 08:02] LABS: Glucose,Whole Blood 148 mg/dL (75-99)
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
--- NOTE | 2020-07-23 08:15 | XR ---
EXAMINATION TYPE: XR chest 1V portable DATE OF EXAM: 07/23/2020 COMPARISON: Prior chest x-ray 07/22/2020 HISTORY: Intubated TECHNIQUE: Single frontal view of the chest is obtained. FINDINGS: Endotracheal tube and orogastric tube are overlying appropriate positions. Pleural parench ymal changes are similar to prior exam. Heart is thought to be enlarged. No evident pneumothorax. IMPRESSION: Correlate for congestive heart failure and pulmonary edema, basilar effusions with pneum onia, ARDS
[2020-07-23] MEDS: LEVOTHYROXINE IVP 100 MCG/5 ML VIAL IV SCH (08:30)
[2020-07-23] MEDS: FUROSEMIDE 10 MG/ML 4 ML VIAL IV SCH ×2 (08:31→21:35)
[2020-07-23] MEDS: PANTOPRAZOLE 40 MG/10 ML VIAL IVP SCH (08:31)
[2020-07-23] MEDS: CHLORHEXIDINE GLUCONATE 15 ML CUP MUCOUS MEM SCH ×2 (08:31→21:35)
[2020-07-23] MEDS ORDERED: POTASSIUM BICARBONATE/CIT AC 20 MEQ TABLET.EFF NG-TUBE SCH ×2 (11:00→19:00)
[2020-07-23 11:59] LABS: Glucose,Whole Blood 130 mg/dL (75-99)
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
[2020-07-23] MEDS: bisacodyL 10 MG SUPP RECTAL SCH (13:55)
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
[2020-07-23] MEDS: NOREPINEPHRINE 32 MG in SODIUM CHLORIDE 0.9% 218 ML IV SCH (16:41)
[2020-07-23 17:38] LABS: Glucose,Whole Blood 163 mg/dL (75-99)
[2020-07-23] MEDS: INSULIN DETEMIR (LEVEMIR) 100 UNIT/ML SYR SQ SCH (21:35)
[2020-07-23 23:55] LABS: Glucose,Whole Blood 144 mg/dL (75-99)
[2020-07-24 00:11] LABS: Glucose,Whole Blood 159 mg/dL (75-99)
[2020-07-24] MEDS ORDERED: POTASSIUM BICARBONATE/CIT AC 20 MEQ TABLET.EFF PO ONE ×2 (00:28→05:21)
[2020-07-24] MEDS: SODIUM CHLORIDE 0.9% 1,000 ML IV SCH (02:34)
[2020-07-24] MEDS: PIPERACILLIN-TAZOBACTAM 3.375 GM in SODIUM CHLORIDE 0.9% 100 ML IVPB SCH ×3 (04:51→20:35)
[2020-07-24 04:54] LABS: Anisocytosis Moderate; HGB 8.1 gm/dL (13.0-17.5); Hypochromasia Slight; MCH 30.9 pg (25.0-35.0); MCV 99.8 fL (80.0-100.0); Macrocytosis Moderate; Mean Platelet Volume 10.8; Platelet Count 162 k/uL (150-450); RBC 2.61 m/uL (4.30-5.90); RDW 20.2 % (11.5-15.5); WBC 9.2 k/uL (3.8-10.6)
[2020-07-24 05:15] LABS: ALT 31 U/L (4-49); AST 28 U/L (17-59); African American GFR (CKD) >90 (>60 ml/min/1.73 sqM); Albumin 2.8 g/dL (3.5-5.0); Alkaline Phosphatase 82 U/L (38-126); Anion Gap 2 mmol/L; Blood Urea Nitrogen 22 mg/dL (9-20); Calcium 8.5 mg/dL (8.4-10.2); Carbon Dioxide 35 mmol/L (22-30); Chloride 102 mmol/L (98-107); Glucose 138 mg/dL (74-99); Non-African American GFR(CKD) >90 (>60 ml/min/1.73 sqM); Potassium 3.8 mmol/L (3.5-5.1); Sodium 139 mmol/L (137-145); Total Bilirubin 2.4 mg/dL (0.2-1.3); Total Protein 5.4 g/dL (6.3-8.2)
[2020-07-24 05:56] LABS: Glucose,Whole Blood 146 mg/dL (75-99)
[2020-07-24] MEDS: INSULIN ASPART (NovoLOG) 100 UNIT/ML VIAL SQ SCH ×3 (05:56→18:32)
[2020-07-24 07:42] LABS: ABG HCO3 37 mmol/L (21-25); ABG Oxygen Saturation 97.3 % (94-97); ABG PCO2 50 mmHg (35-45); ABG PH 7.47 (7.35-7.45); ABG PO2 78 mmHg (83-108); ABG TCO2 38 mmol/L (19-24)
[2020-07-24 07:48] LABS: Allen Test Performed? No
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
[2020-07-24] MEDS ORDERED: bisacodyL 10 MG SUPP RECTAL SCH (09:00)
[2020-07-24] MEDS: IPRATROPIUM-ALBUTEROL 3 ML NEB INHALATION SCH ×4 (09:08→20:16)
--- NOTE | 2020-07-24 10:16 | XR ---
EXAMINATION TYPE: XR chest 1V DATE OF EXAM: 07/24/2020 COMPARISON: Prior chest x-ray 07/23/2020 HISTORY: Shortness of breath TECHNIQUE: Single frontal view of the chest is obtained. FINDINGS: Accounting for differences in technique there is no significant interval change. Endotrach eal tube and NG tube are overlying appropriate positions. Bibasilar density persists, heart remains e nlarged. No evident pneumothorax. IMPRESSION: Basilar effusions and associated atelectasis versus edema or pneumonia. Findings are sim ilar to prior exam.
[2020-07-24] MEDS: PANTOPRAZOLE 40 MG/10 ML VIAL IVP SCH (10:17)
[2020-07-24] MEDS: CHLORHEXIDINE GLUCONATE 15 ML CUP MUCOUS MEM SCH ×2 (10:17→20:35)
[2020-07-24] MEDS: FUROSEMIDE 10 MG/ML 4 ML VIAL IV SCH ×2 (10:17→20:35)
[2020-07-24] MEDS: bisacodyL 10 MG SUPP RECTAL SCH (10:17)
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
[2020-07-24 13:21] LABS: Glucose,Whole Blood 155 mg/dL (75-99)
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
[2020-07-24] MEDS: NOREPINEPHRINE 32 MG in SODIUM CHLORIDE 0.9% 218 ML IV SCH (17:38)
[2020-07-24 18:31] LABS: Glucose,Whole Blood 142 mg/dL (75-99)
[2020-07-24 18:41] LABS: Glucose,Whole Blood 135 mg/dL (75-99)
[2020-07-24] MEDS: INSULIN DETEMIR (LEVEMIR) 100 UNIT/ML SYR SQ SCH (20:37)
[2020-07-24 20:39] LABS: Glucose,Whole Blood 134 mg/dL (75-99)
[2020-07-25 00:16] LABS: Glucose,Whole Blood 135 mg/dL (75-99)
[2020-07-25] MEDS: INSULIN ASPART (NovoLOG) 100 UNIT/ML VIAL SQ SCH ×5 (00:25→23:56)
[2020-07-25] MEDS: SODIUM CHLORIDE 0.9% 1,000 ML IV SCH (03:12)
[2020-07-25] MEDS: PIPERACILLIN-TAZOBACTAM 3.375 GM in SODIUM CHLORIDE 0.9% 100 ML IVPB SCH ×3 (04:26→20:26)
[2020-07-25 04:34] LABS: Anisocytosis Slight; HCT 25.3 % (39.0-53.0); HGB 7.8 gm/dL (13.0-17.5); Hypochromasia Slight; MCH 30.8 pg (25.0-35.0); MCHC 30.9 g/dL (31.0-37.0); MCV 99.7 fL (80.0-100.0); Macrocytosis Moderate; Mean Platelet Volume 8.6; Platelet Count 205 k/uL (150-450); RBC 2.53 m/uL (4.30-5.90); RDW 19.2 % (11.5-15.5); WBC 10.4 k/uL (3.8-10.6)
[2020-07-25 04:42] LABS: ALT 29 U/L (4-49); AST 27 U/L (17-59); African American GFR (CKD) >90 (>60 ml/min/1.73 sqM); Albumin 2.8 g/dL (3.5-5.0); Alkaline Phosphatase 77 U/L (38-126); Anion Gap 2 mmol/L; Blood Urea Nitrogen 26 mg/dL (9-20); Calcium 8.2 mg/dL (8.4-10.2); Carbon Dioxide 37 mmol/L (22-30); Chloride 101 mmol/L (98-107); Glucose 161 mg/dL (74-99); Non-African American GFR(CKD) >90 (>60 ml/min/1.73 sqM); Potassium 3.7 mmol/L (3.5-5.1); Sodium 140 mmol/L (137-145); Total Bilirubin 2.2 mg/dL (0.2-1.3); Total Protein 5.4 g/dL (6.3-8.2)
[2020-07-25] MEDS ORDERED: POTASSIUM BICARBONATE/CIT AC 20 MEQ TABLET.EFF PO ONE (04:49)
[2020-07-25 05:24] LABS: Glucose,Whole Blood 159 mg/dL (75-99)
[2020-07-25 07:46] LABS: ABG Base Excess 13.5 mmol/L; ABG HCO3 37 mmol/L (21-25); ABG PCO2 54 mmHg (35-45); ABG PH 7.45 (7.35-7.45); ABG PO2 87 mmHg (83-108); ABG TCO2 39 mmol/L (19-24)
[2020-07-25 07:49] LABS: Allen Test Performed? no
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
[2020-07-25] MEDS: bisacodyL 10 MG SUPP RECTAL SCH (08:15)
[2020-07-25] MEDS: CHLORHEXIDINE GLUCONATE 15 ML CUP MUCOUS MEM SCH ×2 (08:15→20:21)
[2020-07-25] MEDS: FUROSEMIDE 10 MG/ML 4 ML VIAL IV SCH ×2 (08:15→20:26)
[2020-07-25] MEDS: LEVOTHYROXINE IVP 100 MCG/5 ML VIAL IV SCH (08:16)
[2020-07-25] MEDS: PANTOPRAZOLE 40 MG/10 ML VIAL IVP SCH (08:16)
[2020-07-25] MEDS: IPRATROPIUM-ALBUTEROL 3 ML NEB INHALATION SCH ×4 (08:29→21:53)
--- NOTE | 2020-07-25 09:51 | XR ---
EXAMINATION TYPE: XR chest 1V portable DATE OF EXAM: 07/25/2020 COMPARISON: 07/24/2020 HISTORY: Shortness of breath TECHNIQUE: Single frontal view of the chest is obtained. FINDINGS: ET tube and NG tube stable. Bilateral infiltrate and pleural effusion with interstitial pa ttern and cardiomegaly. No pneumothorax. Prominence the right paratracheal stripe noted. Could be pos itional although underlying adenopathy not excluded. IMPRESSION: 1. Stable diffuse pleural-parenchymal changes correlate for CHF versus diffuse pneumonia.
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
[2020-07-25 12:09] LABS: Glucose,Whole Blood 146 mg/dL (75-99)
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
[2020-07-25] MEDS: NOREPINEPHRINE 32 MG in SODIUM CHLORIDE 0.9% 218 ML IV SCH (16:31)
[2020-07-25 17:45] LABS: Glucose,Whole Blood 122 mg/dL (75-99)
[2020-07-25 20:27] LABS: Glucose,Whole Blood 132 mg/dL (75-99)
[2020-07-25] MEDS: INSULIN DETEMIR (LEVEMIR) 100 UNIT/ML SYR SQ SCH (20:27)
[2020-07-25 20:53] LABS: ABG Base Excess 12.2 mmol/L; ABG HCO3 36 mmol/L (21-25); ABG PCO2 50 mmHg (35-45); ABG PH 7.47 (7.35-7.45); ABG PO2 79 mmHg (83-108); ABG TCO2 37 mmol/L (19-24); Allen Test Performed? Yes
[2020-07-25 23:41] LABS: Glucose,Whole Blood 134 mg/dL (75-99)
[2020-07-26] MEDS: PIPERACILLIN-TAZOBACTAM 3.375 GM in SODIUM CHLORIDE 0.9% 100 ML IVPB SCH ×3 (05:33→21:31)
[2020-07-26 05:40] LABS: Glucose,Whole Blood 98 mg/dL (75-99)
[2020-07-26] MEDS: INSULIN ASPART (NovoLOG) 100 UNIT/ML VIAL SQ SCH ×3 (05:46→17:42)
[2020-07-26] MEDS: SODIUM CHLORIDE 0.9% 1,000 ML IV SCH (05:47)
[2020-07-26 05:52] LABS: Anisocytosis Slight; HCT 25.1 % (39.0-53.0); HGB 7.9 gm/dL (13.0-17.5); Hypochromasia Slight; MCH 31.3 pg (25.0-35.0); MCHC 31.5 g/dL (31.0-37.0); MCV 99.4 fL (80.0-100.0); Macrocytosis Slight; Mean Platelet Volume 9.1; Platelet Count 199 k/uL (150-450); RBC 2.52 m/uL (4.30-5.90); RDW 18.5 % (11.5-15.5); WBC 7.2 k/uL (3.8-10.6)
[2020-07-26 06:01] LABS: ALT 28 U/L (4-49); AST 29 U/L (17-59); African American GFR (CKD) >90 (>60 ml/min/1.73 sqM); Alkaline Phosphatase 83 U/L (38-126); Anion Gap -1 mmol/L; Blood Urea Nitrogen 29 mg/dL (9-20); Calcium 8.8 mg/dL (8.4-10.2); Carbon Dioxide 40 mmol/L (22-30); Chloride 102 mmol/L (98-107); Glucose 92 mg/dL (74-99); Non-African American GFR(CKD) 86 (>60 ml/min/1.73 sqM); Potassium 3.6 mmol/L (3.5-5.1); Sodium 141 mmol/L (137-145); Total Bilirubin 2.1 mg/dL (0.2-1.3); Total Protein 5.9 g/dL (6.3-8.2)
[2020-07-26] MEDS: IPRATROPIUM-ALBUTEROL 3 ML NEB INHALATION SCH ×4 (07:20→21:32)
[2020-07-26] MEDS ORDERED: POTASSIUM BICARBONATE/CIT AC 20 MEQ TABLET.EFF NG-TUBE SCH (07:30)
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
[2020-07-26] MEDS: LEVOTHYROXINE IVP 100 MCG/5 ML VIAL IV SCH (08:46)
[2020-07-26] MEDS: bisacodyL 10 MG SUPP RECTAL SCH (08:46)
[2020-07-26] MEDS: PANTOPRAZOLE 40 MG/10 ML VIAL IVP SCH (08:46)
[2020-07-26] MEDS: FUROSEMIDE 10 MG/ML 4 ML VIAL IV SCH ×2 (08:46→21:31)
--- NOTE | 2020-07-26 10:19 | XR ---
EXAMINATION TYPE: XR chest 1V portable DATE OF EXAM: 07/26/2020 COMPARISON: Prior chest x-ray 07/25/2020 HISTORY: Shortness of breath TECHNIQUE: Single frontal view of the chest is obtained. FINDINGS: There is no evident pneumothorax. Heart is obscured, bibasilar density persists. Endotrach eal tube and NG tube have been removed. Central vascularity is prominent. IMPRESSION: Bilateral pleural effusions and associated atelectasis versus edema or pneumonia. Correl ate for congestive heart failure. Interval extubation.
--- NOTE | 2020-07-26 11:12 | US ---
EXAMINATION TYPE: US chest DATE OF EXAM: 07/26/2020 COMPARISON: Chest x-ray 07/26/2020 CLINICAL HISTORY: Markings for thoracentesis by pulmonary staff. ICU patient. TECHNIQUE: Targeted ultrasound of the posterior lower bilateral hemithoraces EXAM MEASUREMENTS: Right Pleural Effusion pocket size: 2.1 cm Left Pleural Effusion pocket size: 1.6 cm limited visualization due to patient position, ICU patient Right side NOT marked for possible thoracentesis outside the dept. Left side NOT marked for possible thoracentesis outside the dept. Pulmonologists are able to review the images in the patient?s EMR. IMPRESSIONS: There are bilateral pleural effusions right greater than left
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
[2020-07-26 12:49] LABS: Glucose,Whole Blood 151 mg/dL (75-99)
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
[2020-07-26 17:40] LABS: Glucose,Whole Blood 154 mg/dL (75-99)
[2020-07-26] MEDS: INSULIN DETEMIR (LEVEMIR) 100 UNIT/ML SYR SQ SCH (21:31)
[2020-07-26 23:59] LABS: Glucose,Whole Blood 159 mg/dL (75-99)
[2020-07-27] MEDS: INSULIN ASPART (NovoLOG) 100 UNIT/ML VIAL SQ SCH ×5 (00:05→23:55)
[2020-07-27 04:24] LABS: Anisocytosis Slight; Basophils # (A) 0.1 k/uL (0-0.2); Basophils % (A) 1 %; Eosinophils # (A) 0.3 k/uL (0-0.7); Eosinophils % (A) 4 %; HCT 25.9 % (39.0-53.0); HGB 8.3 gm/dL (13.0-17.5); Hypochromasia Slight; Lymphocytes # (A) 0.9 k/uL (1.0-4.8); Lymphocytes % (A) 13 %; MCV 99.8 fL (80.0-100.0); Macrocytosis Slight; Mean Platelet Volume 8.4; Monocytes # (A) 0.5 k/uL (0-1.0); Monocytes % (A) 7 %; Neutrophils # (A) 5.2 k/uL (1.3-7.7); Neutrophils % (A) 73 %; Platelet Count 222 k/uL (150-450); RBC 2.59 m/uL (4.30-5.90); RDW 17.9 % (11.5-15.5); WBC 7.2 k/uL (3.8-10.6)
[2020-07-27 04:32] LABS: ALT 27 U/L (4-49); AST 25 U/L (17-59); African American GFR (CKD) >90 (>60 ml/min/1.73 sqM); Alkaline Phosphatase 93 U/L (38-126); Anion Gap 3 mmol/L; Blood Urea Nitrogen 28 mg/dL (9-20); Chloride 98 mmol/L (98-107); Glucose 119 mg/dL (74-99); Non-African American GFR(CKD) 84 (>60 ml/min/1.73 sqM); Potassium 3.4 mmol/L (3.5-5.1); Sodium 141 mmol/L (137-145); Total Bilirubin 1.9 mg/dL (0.2-1.3); Total Protein 5.9 g/dL (6.3-8.2)
[2020-07-27 04:45] LABS: Carbon Dioxide 40 mmol/L (22-30)
[2020-07-27] MEDS: PIPERACILLIN-TAZOBACTAM 3.375 GM in SODIUM CHLORIDE 0.9% 100 ML IVPB SCH ×3 (05:03→22:17)
[2020-07-27] MEDS: POTASSIUM CHLORIDE 10 MEQ in WATER FOR INJECTION 1 100ML.BAG IVPB SCH ×4 (05:03→08:38)
[2020-07-27] MEDS: SODIUM CHLORIDE 0.9% 1,000 ML IV SCH (05:04)
[2020-07-27 06:13] LABS: Glucose,Whole Blood 122 mg/dL (75-99)
[2020-07-27] MEDS: IPRATROPIUM-ALBUTEROL 3 ML NEB INHALATION SCH ×4 (07:31→19:35)
[2020-07-27] MEDS: bisacodyL 10 MG SUPP RECTAL SCH (08:36)
--- NOTE | 2020-07-27 08:36 | XR ---
EXAMINATION TYPE: XR chest 1V portable DATE OF EXAM: 07/27/2020 CLINICAL HISTORY: rib fx. TECHNIQUE: Portable frontal view of the chest. COMPARISON: 07/26/2020 chest radiograph FINDINGS: Cardiac silhouette is obscured. Persistent moderate right and small left pleural effusions . Bibasilar airspace opacities redemonstrated, with subsegmental atelectasis over the left lung base. No pneumothorax. Redemonstrated mildly displaced right rib 6 and 7 rib fractures. IMPRESSION: Bilateral pleural effusions and right basilar airspace opacities not significantly bermeo ed versus 07/26/2020.
[2020-07-27] MEDS: FUROSEMIDE 10 MG/ML 4 ML VIAL IV SCH ×2 (08:38→22:17)
[2020-07-27] MEDS: PANTOPRAZOLE 40 MG/10 ML VIAL IVP SCH (08:38)
[2020-07-27] MEDS: LEVOTHYROXINE IVP 100 MCG/5 ML VIAL IV SCH (08:38)
--- NOTE | 2020-07-27 11:39 | P.PN ---
Progress Note - Text Progress Note Date: 07/27/20 The patient remains extubated. He is currently an BiPAP O2 mass. He is not complaining of any abdominal pain. On exam vital signs appear stable abdomen soft. Continue supportive care.
[2020-07-27 12:29] LABS: Glucose,Whole Blood 119 mg/dL (75-99)
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
[2020-07-27] MEDS ORDERED: IOPAMIDOL CONTRAST (ORAL USE) VIAL PO PRN (15:26)
[2020-07-27] MEDS ORDERED: Potassium Replacement Protocol 1 EACH MISC MISCELLANE PRN (15:41)
[2020-07-27] MEDS ORDERED: Magnesium Replacement Protocol 1 EACH MISC MISCELLANE PRN (15:41)
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
[2020-07-27 16:19] LABS: INR 1.1 (<1.2); Prothrombin Time 10.8 sec (9.0-12.0)
[2020-07-27] MEDS: metFORMIN 500 MG TAB PO SCH (17:34)
[2020-07-27 17:37] LABS: Glucose,Whole Blood 159 mg/dL (75-99)
[2020-07-27] MEDS ORDERED: LORazepam 2 MG/ML INJ IV PRN (22:15)
[2020-07-27] MEDS: ATORVASTATIN 40 MG TAB PO SCH (22:17)
[2020-07-27] MEDS: HEPARIN SODIUM,PORCINE 5,000 UNIT/ML 1 ML VIAL SQ SCH (22:17)
[2020-07-27] MEDS: INSULIN DETEMIR (LEVEMIR) 100 UNIT/ML SYR SQ SCH (22:17)
[2020-07-27 23:55] LABS: Glucose,Whole Blood 145 mg/dL (75-99)
[2020-07-28] MEDS: SODIUM CHLORIDE 0.9% 1,000 ML IV SCH (04:13)
[2020-07-28] MEDS: PIPERACILLIN-TAZOBACTAM 3.375 GM in SODIUM CHLORIDE 0.9% 100 ML IVPB SCH ×3 (04:13→20:46)
[2020-07-28 04:29] LABS: Anisocytosis Slight; Basophils # (A) 0.1 k/uL (0-0.2); Basophils % (A) 1 %; Eosinophils # (A) 0.3 k/uL (0-0.7); Eosinophils % (A) 5 %; HCT 27.5 % (39.0-53.0); HGB 8.8 gm/dL (13.0-17.5); Hypochromasia Moderate; Lymphocytes % (A) 14 %; MCH 32.3 pg (25.0-35.0); MCHC 32.2 g/dL (31.0-37.0); MCV 100.4 fL (80.0-100.0); Macrocytosis Slight; Mean Platelet Volume 9.4; Monocytes # (A) 0.5 k/uL (0-1.0); Monocytes % (A) 7 %; Neutrophils % (A) 71 %; Platelet Count 234 k/uL (150-450); RBC 2.73 m/uL (4.30-5.90); RDW 17.5 % (11.5-15.5)
[2020-07-28 04:48] LABS: ALT 31 U/L (4-49); AST 29 U/L (17-59); African American GFR (CKD) >90 (>60 ml/min/1.73 sqM); Albumin 3.2 g/dL (3.5-5.0); Alkaline Phosphatase 108 U/L (38-126); Blood Urea Nitrogen 27 mg/dL (9-20); Calcium 9.1 mg/dL (8.4-10.2); Chloride 97 mmol/L (98-107); Glucose 122 mg/dL (74-99); Magnesium 1.6 mg/dL (1.6-2.3); Non-African American GFR(CKD) 84 (>60 ml/min/1.73 sqM); Potassium 3.5 mmol/L (3.5-5.1); Sodium 141 mmol/L (137-145); Total Bilirubin 1.7 mg/dL (0.2-1.3); Total Protein 6.3 g/dL (6.3-8.2)
[2020-07-28 04:53] LABS: Anion Gap 5 mmol/L
[2020-07-28 04:55] LABS: Carbon Dioxide 39 mmol/L (22-30)
[2020-07-28] MEDS: POTASSIUM CHLORIDE 10 MEQ in WATER FOR INJECTION 1 100ML.BAG IVPB SCH ×4 (05:20→11:02)
[2020-07-28 06:07] LABS: Glucose,Whole Blood 117 mg/dL (75-99)
[2020-07-28] MEDS: INSULIN ASPART (NovoLOG) 100 UNIT/ML VIAL SQ SCH ×4 (06:07→20:45)
[2020-07-28] MEDS: metFORMIN 500 MG TAB PO SCH ×2 (06:51→18:56)
[2020-07-28] MEDS: LEVOTHYROXINE 100 MCG TAB PO SCH (06:51)
--- NOTE | 2020-07-28 07:24 | XR ---
EXAMINATION TYPE: XR chest 1V portable DATE OF EXAM: 07/28/2020 HISTORY: Shortness of breath. COMPARISON: 07/27/2020 TECHNIQUE: Single view of the chest is submitted. FINDINGS: Demonstrated are scattered senescent parenchymal change. Improving basilar infiltrates and/or atelectasis with small effusions. The heart is stable. Hilar and mediastinal structures are within normal limits. Degenerative changes are seen of the dorsal spine. IMPRESSION: 1. Improving basilar infiltrates and/or atelectasis with small effusions.
[2020-07-28] MEDS: IPRATROPIUM-ALBUTEROL 3 ML NEB INHALATION SCH ×4 (07:35→19:13)
[2020-07-28] MEDS: allopurinoL 100 MG TAB PO SCH (08:31)
[2020-07-28] MEDS: POTASSIUM CHLORIDE ER 10 MEQ TAB.ER.PRT PO SCH (08:31)
[2020-07-28] MEDS: FUROSEMIDE 10 MG/ML 4 ML VIAL IV SCH ×2 (08:31→20:45)
[2020-07-28] MEDS: HEPARIN SODIUM,PORCINE 5,000 UNIT/ML 1 ML VIAL SQ SCH ×2 (08:31→20:45)
[2020-07-28] MEDS: PANTOPRAZOLE 40 MG/10 ML VIAL IVP SCH (08:31)
[2020-07-28] MEDS: MAGNESIUM OXIDE 400 MG TAB PO SCH (08:31)
[2020-07-28] MEDS: MAGNESIUM SULFATE-D5W PMX 1 GM in DEXTROSE/WATER 1 100ML.BAG IVPB SCH ×2 (08:32→11:02)
[2020-07-28] MEDS: amLODIPine 5 MG TAB PO SCH (08:32)
--- NOTE | 2020-07-28 09:59 | P.PN ---
Progress Note - Text Progress Note Date: 07/28/20 Patient remains on BiPAP. He will continue receive supportive care.
[2020-07-28] MEDS: bisacodyL 10 MG SUPP RECTAL SCH (10:55)
[2020-07-28 11:57] LABS: Glucose,Whole Blood 183 mg/dL (75-99)
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
[2020-07-28 16:40] LABS: Glucose,Whole Blood 133 mg/dL (75-99)
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
[2020-07-28 20:28] LABS: Glucose,Whole Blood 151 mg/dL (75-99)
[2020-07-28] MEDS: ATORVASTATIN 40 MG TAB PO SCH (20:45)
[2020-07-28] MEDS: INSULIN DETEMIR (LEVEMIR) 100 UNIT/ML SYR SQ SCH (20:46)
[2020-07-29 00:02] LABS: Glucose,Whole Blood 102 mg/dL (75-99)
[2020-07-29] MEDS: PIPERACILLIN-TAZOBACTAM 3.375 GM in SODIUM CHLORIDE 0.9% 100 ML IVPB SCH ×3 (04:35→22:37)
[2020-07-29] MEDS: SODIUM CHLORIDE 0.9% 1,000 ML IV SCH (04:35)
[2020-07-29 04:49] LABS: Anisocytosis Slight; Basophils # (A) 0.1 k/uL (0-0.2); Basophils % (A) 1 %; Eosinophils # (A) 0.3 k/uL (0-0.7); Eosinophils % (A) 4 %; HCT 29.6 % (39.0-53.0); HGB 9.3 gm/dL (13.0-17.5); Hypochromasia Moderate; Lymphocytes # (A) 1.2 k/uL (1.0-4.8); Lymphocytes % (A) 14 %; MCH 31.5 pg (25.0-35.0); MCHC 31.6 g/dL (31.0-37.0); MCV 99.6 fL (80.0-100.0); Macrocytosis Slight; Mean Platelet Volume 8.3; Monocytes # (A) 0.5 k/uL (0-1.0); Monocytes % (A) 6 %; Neutrophils # (A) 6.3 k/uL (1.3-7.7); Neutrophils % (A) 73 %; Platelet Count 265 k/uL (150-450); RBC 2.97 m/uL (4.30-5.90); RDW 17.6 % (11.5-15.5); WBC 8.6 k/uL (3.8-10.6)
[2020-07-29 04:58] LABS: African American GFR (CKD) >90 (>60 ml/min/1.73 sqM); Albumin 3.6 g/dL (3.5-5.0); Anion Gap 5 mmol/L; Calcium 9.3 mg/dL (8.4-10.2); Carbon Dioxide 37 mmol/L (22-30); Chloride 97 mmol/L (98-107); Glucose 85 mg/dL (74-99); Non-African American GFR(CKD) >90 (>60 ml/min/1.73 sqM); Sodium 139 mmol/L (137-145); Total Bilirubin 1.8 mg/dL (0.2-1.3); Total Protein 6.9 g/dL (6.3-8.2)
[2020-07-29 05:00] LABS: ALT 28 U/L (4-49); AST 38 U/L (17-59); Alkaline Phosphatase 100 U/L (38-126); Blood Urea Nitrogen 33 mg/dL (9-20); Magnesium 1.8 mg/dL (1.6-2.3); Potassium 4.7 mmol/L (3.5-5.1)
[2020-07-29] MEDS: metFORMIN 500 MG TAB PO SCH ×2 (06:39→17:14)
[2020-07-29] MEDS: LEVOTHYROXINE 100 MCG TAB PO SCH (06:39)
[2020-07-29 07:14] LABS: Glucose,Whole Blood 96 mg/dL (75-99)
--- NOTE | 2020-07-29 08:15 | XR ---
EXAMINATION TYPE: XR chest 1V portable DATE OF EXAM: 07/29/2020 COMPARISON: Prior chest x-ray 07/28/2020 HISTORY: Rib fractures, abnormal chest x-ray TECHNIQUE: Single frontal view of the chest is obtained. FINDINGS: Bibasilar increased attenuation persists. Heart is stable. There is no evident pneumothora x. There are overlying cardiac leads. Posterior sixth and seventh, eighth rib fractures are seen on t he right with displacement. IMPRESSION: Findings are similar to prior exam. Probable basilar effusions and associated atelectasi s
[2020-07-29] MEDS: INSULIN ASPART (NovoLOG) 100 UNIT/ML VIAL SQ SCH ×4 (08:18→22:38)
[2020-07-29] MEDS: HEPARIN SODIUM,PORCINE 5,000 UNIT/ML 1 ML VIAL SQ SCH ×2 (08:27→22:37)
[2020-07-29] MEDS: FUROSEMIDE 10 MG/ML 4 ML VIAL IV SCH ×2 (08:27→22:37)
[2020-07-29] MEDS: MAGNESIUM OXIDE 400 MG TAB PO SCH (08:28)
[2020-07-29] MEDS: POTASSIUM CHLORIDE ER 10 MEQ TAB.ER.PRT PO SCH (08:28)
[2020-07-29] MEDS: allopurinoL 100 MG TAB PO SCH (08:28)
[2020-07-29] MEDS: amLODIPine 5 MG TAB PO SCH (08:28)
[2020-07-29] MEDS: PANTOPRAZOLE 40 MG/10 ML VIAL IVP SCH (08:28)
[2020-07-29] MEDS: bisacodyL 10 MG SUPP RECTAL SCH (08:28)
[2020-07-29] MEDS: IPRATROPIUM-ALBUTEROL 3 ML NEB INHALATION SCH ×4 (09:34→19:39)
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
[2020-07-29 12:07] LABS: Glucose,Whole Blood 137 mg/dL (75-99)
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
--- NOTE | 2020-07-29 16:47 | XR ---
EXAMINATION TYPE: XR foot complete LT DATE OF EXAM: 07/29/2020 COMPARISON: NONE HISTORY: Foot pain TECHNIQUE: 3 views FINDINGS: There are plantar and Achilles calcaneal spurs. Metatarsals appear intact. I see no fractur e. There is some periarticular calcification at the fifth MP joint. There are no erosions. IMPRESSION: Degenerative changes. No acute bony abnormality.
[2020-07-29 17:07] LABS: Glucose,Whole Blood 202 mg/dL (75-99)
[2020-07-29] MEDS: BUDESONIDE 1 MG/2 ML NEBU INHALATION SCH (19:39)
[2020-07-29] MEDS: FORMOTEROL FUMARATE 20 MCG/2 ML NEBU INHALATION SCH (19:39)
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
[2020-07-29 21:43] LABS: Glucose,Whole Blood 187 mg/dL (75-99)
[2020-07-29 22:26] LABS: Glucose,Whole Blood 181 mg/dL (75-99)
[2020-07-29] MEDS: INSULIN DETEMIR (LEVEMIR) 100 UNIT/ML SYR SQ SCH (22:38)
[2020-07-29] MEDS: ATORVASTATIN 40 MG TAB PO SCH (22:38)
[2020-07-30] MEDS: ACETAMINOPHEN TAB 325 MG TAB PO PRN (00:43)
[2020-07-30 04:04] LABS: Anisocytosis Slight; HCT 29.8 % (39.0-53.0); HGB 9.8 gm/dL (13.0-17.5); Hypochromasia Slight; MCH 32.2 pg (25.0-35.0); MCHC 32.8 g/dL (31.0-37.0); MCV 98.3 fL (80.0-100.0); Macrocytosis Slight; Mean Platelet Volume 8.8; Platelet Count 233 k/uL (150-450); RBC 3.03 m/uL (4.30-5.90); RDW 17.6 % (11.5-15.5)
[2020-07-30 04:13] LABS: African American GFR (CKD) >90 (>60 ml/min/1.73 sqM); Anion Gap 8 mmol/L; Blood Urea Nitrogen 38 mg/dL (9-20); Calcium 9.3 mg/dL (8.4-10.2); Carbon Dioxide 33 mmol/L (22-30); Chloride 95 mmol/L (98-107); Glucose 139 mg/dL (74-99); Non-African American GFR(CKD) 89 (>60 ml/min/1.73 sqM); Sodium 136 mmol/L (137-145)
[2020-07-30] MEDS: SODIUM CHLORIDE 0.9% 1,000 ML IV SCH (06:02)
[2020-07-30] MEDS: PIPERACILLIN-TAZOBACTAM 3.375 GM in SODIUM CHLORIDE 0.9% 100 ML IVPB SCH (06:03)
[2020-07-30] MEDS: LEVOTHYROXINE 100 MCG TAB PO SCH (06:04)
[2020-07-30 06:57] LABS: Glucose,Whole Blood 126 mg/dL (75-99)
[2020-07-30] MEDS: INSULIN ASPART (NovoLOG) 100 UNIT/ML VIAL SQ SCH ×4 (06:57→22:59)
[2020-07-30] MEDS: metFORMIN 500 MG TAB PO SCH ×2 (06:57→17:19)
--- NOTE | 2020-07-30 08:29 | XR ---
EXAMINATION TYPE: XR chest 1V portable DATE OF EXAM: 07/30/2020 COMPARISON: 07/29/2020 HISTORY: Pain TECHNIQUE: Single frontal view of the chest is obtained. FINDINGS: Bilateral consolidation and pleural effusion noted. Right-sided displaced rib fractures st able. No sizable pneumothorax. Heart is stable. Hypertrophic and degenerative change of the spine. Ar thropathy of the shoulders. IMPRESSION: 1. Stable bilateral infiltrate and pleural effusion. 2. Acute displaced right-sided rib fractures.
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
[2020-07-30] MEDS: allopurinoL 100 MG TAB PO SCH (08:43)
[2020-07-30] MEDS: amLODIPine 5 MG TAB PO SCH (08:44)
[2020-07-30] MEDS: PANTOPRAZOLE 40 MG/10 ML VIAL IVP SCH (08:44)
[2020-07-30] MEDS: FUROSEMIDE 10 MG/ML 4 ML VIAL IV SCH ×2 (08:44→22:59)
[2020-07-30] MEDS: POTASSIUM CHLORIDE ER 10 MEQ TAB.ER.PRT PO SCH (08:44)
[2020-07-30] MEDS: MAGNESIUM OXIDE 400 MG TAB PO SCH (08:44)
[2020-07-30] MEDS: bisacodyL 10 MG SUPP RECTAL SCH (08:45)
[2020-07-30] MEDS: HEPARIN SODIUM,PORCINE 5,000 UNIT/ML 1 ML VIAL SQ SCH ×2 (08:45→22:56)
[2020-07-30] MEDS: FORMOTEROL FUMARATE 20 MCG/2 ML NEBU INHALATION SCH ×2 (09:11→21:11)
[2020-07-30] MEDS: BUDESONIDE 1 MG/2 ML NEBU INHALATION SCH ×2 (09:11→09:12)
[2020-07-30] MEDS: IPRATROPIUM-ALBUTEROL 3 ML NEB INHALATION SCH ×4 (09:12→21:11)
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
[2020-07-30 12:30] LABS: Glucose,Whole Blood 130 mg/dL (75-99)
--- NOTE | 2020-07-30 12:35 | XR ---
EXAMINATION TYPE: XR knee complete LT DATE OF EXAM: 07/30/2020 COMPARISON: NONE HISTORY: Pain TECHNIQUE: Three views are submitted. FINDINGS: Small suprapatellar bursal fluid collection. Vascular calcifications noted. There is arthropathy of t he patellofemoral joint and medial compartment of the knee joint with hypertrophic spurring. No acute fracture. No destructive changes. IMPRESSION: 1. Osteoarthritis.
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
[2020-07-30 17:04] LABS: Glucose,Whole Blood 145 mg/dL (75-99)
--- NOTE | 2020-07-30 19:06 | XR ---
EXAMINATION TYPE: XR cervical spine w flex/ext DATE OF EXAM: 07/30/2020 COMPARISON: NONE HISTORY: Neck pain TECHNIQUE: 8 views FINDINGS: There are large hypertrophic anterior bridging osteophytes in the cervical spine from C2 to T1. The posterior elements are intact. I see no evidence for fracture. There is neural foraminal mul tilevel impingement due to uncovertebral spurring. The lateral axial facet joint is not displaced. Th ere are no cervical ribs. There is multilevel cervical disc space narrowing there is more noticeable at levels from C4 to C7. IMPRESSION: Moderate multilevel spondylotic changes for the patient's age. No fracture seen.
[2020-07-30 20:28] LABS: Glucose,Whole Blood 149 mg/dL (75-99)
[2020-07-30 22:42] LABS: Glucose,Whole Blood 132 mg/dL (75-99)
[2020-07-30] MEDS: ATORVASTATIN 40 MG TAB PO SCH (22:56)
[2020-07-30] MEDS: INSULIN DETEMIR (LEVEMIR) 100 UNIT/ML SYR SQ SCH (22:58)
[2020-07-31 04:19] LABS: Anisocytosis Slight; HCT 30.1 % (39.0-53.0); HGB 9.7 gm/dL (13.0-17.5); Hypochromasia Slight; MCH 32.1 pg (25.0-35.0); MCHC 32.3 g/dL (31.0-37.0); MCV 99.4 fL (80.0-100.0); Macrocytosis Slight; Mean Platelet Volume 8.5; Platelet Count 290 k/uL (150-450); RBC 3.03 m/uL (4.30-5.90); RDW 17.5 % (11.5-15.5); WBC 11.4 k/uL (3.8-10.6)
[2020-07-31 04:42] LABS: African American GFR (CKD) >90 (>60 ml/min/1.73 sqM); Anion Gap 9 mmol/L; Blood Urea Nitrogen 43 mg/dL (9-20); Calcium 9.6 mg/dL (8.4-10.2); Carbon Dioxide 36 mmol/L (22-30); Chloride 93 mmol/L (98-107); Glucose 121 mg/dL (74-99); Non-African American GFR(CKD) >90 (>60 ml/min/1.73 sqM); Sodium 138 mmol/L (137-145)
[2020-07-31 05:56] LABS: Glucose,Whole Blood 135 mg/dL (75-99)
[2020-07-31] MEDS: SODIUM CHLORIDE 0.9% 1,000 ML IV SCH (06:12)
[2020-07-31] MEDS: metFORMIN 500 MG TAB PO SCH ×2 (06:12→17:46)
[2020-07-31] MEDS: LEVOTHYROXINE 100 MCG TAB PO SCH (06:12)
[2020-07-31] MEDS: PANTOPRAZOLE 40 MG TABLET PO SCH (06:13)
[2020-07-31] MEDS: INSULIN ASPART (NovoLOG) 100 UNIT/ML VIAL SQ SCH ×4 (06:13→20:47)
--- NOTE | 2020-07-31 08:42 | XR ---
EXAMINATION TYPE: XR chest 1V portable DATE OF EXAM: 07/31/2020 COMPARISON: Prior chest x-ray 07/30/2020 HISTORY: Exertional dyspnea TECHNIQUE: Single frontal view of the chest is obtained. FINDINGS: Findings are essentially stable. IMPRESSION: Basilar effusions and associated atelectasis, correlate to exclude pneumonia.
[2020-07-31] MEDS: FORMOTEROL FUMARATE 20 MCG/2 ML NEBU INHALATION SCH ×2 (08:49→19:40)
[2020-07-31] MEDS: IPRATROPIUM-ALBUTEROL 3 ML NEB INHALATION SCH ×4 (08:49→19:40)
[2020-07-31] MEDS: BUDESONIDE 1 MG/2 ML NEBU INHALATION SCH ×2 (08:49→19:40)
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
[2020-07-31] MEDS: amLODIPine 5 MG TAB PO SCH (09:20)
[2020-07-31] MEDS: POTASSIUM CHLORIDE ER 10 MEQ TAB.ER.PRT PO SCH (09:20)
[2020-07-31] MEDS: MAGNESIUM OXIDE 400 MG TAB PO SCH (09:20)
[2020-07-31] MEDS: FUROSEMIDE 10 MG/ML 4 ML VIAL IV SCH (09:20)
[2020-07-31] MEDS: HEPARIN SODIUM,PORCINE 5,000 UNIT/ML 1 ML VIAL SQ SCH ×2 (09:20→20:46)
[2020-07-31] MEDS: allopurinoL 100 MG TAB PO SCH (09:20)
[2020-07-31] MEDS: bisacodyL 10 MG SUPP RECTAL SCH (09:22)
[2020-07-31] MEDS: FUROSEMIDE 40 MG TAB PO SCH (09:50)
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
[2020-07-31 11:15] LABS: Glucose,Whole Blood 140 mg/dL (75-99)
[2020-07-31] MEDS: ACETAMINOPHEN TAB 325 MG TAB PO PRN (12:25)
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
[2020-07-31 17:16] LABS: Glucose,Whole Blood 99 mg/dL (75-99)
[2020-07-31 20:39] LABS: Glucose,Whole Blood 140 mg/dL (75-99)
[2020-07-31] MEDS: ATORVASTATIN 40 MG TAB PO SCH (20:46)
[2020-07-31] MEDS: INSULIN DETEMIR (LEVEMIR) 100 UNIT/ML SYR SQ SCH (20:47)
[2020-08-01] MEDS: ACETAMINOPHEN TAB 325 MG TAB PO PRN ×2 (02:06→09:08)
[2020-08-01 04:53] LABS: Anisocytosis Slight; HGB 9.5 gm/dL (13.0-17.5); Hypochromasia Slight; MCH 31.2 pg (25.0-35.0); MCHC 31.6 g/dL (31.0-37.0); Macrocytosis Slight; Mean Platelet Volume 8.6; Platelet Count 385 k/uL (150-450); RBC 3.04 m/uL (4.30-5.90); RDW 17.6 % (11.5-15.5); WBC 12.5 k/uL (3.8-10.6)
[2020-08-01 05:15] LABS: African American GFR (CKD) >90 (>60 ml/min/1.73 sqM); Anion Gap 6 mmol/L; Blood Urea Nitrogen 51 mg/dL (9-20); Calcium 9.5 mg/dL (8.4-10.2); Carbon Dioxide 37 mmol/L (22-30); Chloride 93 mmol/L (98-107); Glucose 95 mg/dL (74-99); Non-African American GFR(CKD) >90 (>60 ml/min/1.73 sqM); Potassium 4.2 mmol/L (3.5-5.1); Sodium 136 mmol/L (137-145)
[2020-08-01] MEDS: INSULIN ASPART (NovoLOG) 100 UNIT/ML VIAL SQ SCH ×4 (06:30→21:11)
[2020-08-01 06:31] LABS: Glucose,Whole Blood 96 mg/dL (75-99)
[2020-08-01] MEDS: metFORMIN 500 MG TAB PO SCH ×2 (06:31→17:53)
[2020-08-01] MEDS: PANTOPRAZOLE 40 MG TABLET PO SCH (06:31)
[2020-08-01] MEDS: LEVOTHYROXINE 100 MCG TAB PO SCH (06:31)
[2020-08-01] MEDS: IPRATROPIUM-ALBUTEROL 3 ML NEB INHALATION SCH ×4 (07:43→20:31)
[2020-08-01] MEDS: FORMOTEROL FUMARATE 20 MCG/2 ML NEBU INHALATION SCH ×2 (07:43→20:31)
[2020-08-01] MEDS: BUDESONIDE 1 MG/2 ML NEBU INHALATION SCH ×2 (07:43→20:31)
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
[2020-08-01] MEDS: MAGNESIUM OXIDE 400 MG TAB PO SCH (09:08)
[2020-08-01] MEDS: POTASSIUM CHLORIDE ER 10 MEQ TAB.ER.PRT PO SCH (09:08)
[2020-08-01] MEDS: amLODIPine 5 MG TAB PO SCH (09:08)
[2020-08-01] MEDS: allopurinoL 100 MG TAB PO SCH (09:08)
[2020-08-01] MEDS: HEPARIN SODIUM,PORCINE 5,000 UNIT/ML 1 ML VIAL SQ SCH ×2 (09:08→21:11)
[2020-08-01] MEDS: FUROSEMIDE 40 MG TAB PO SCH (09:08)
[2020-08-01] MEDS: bisacodyL 10 MG SUPP RECTAL SCH (09:13)
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
[2020-08-01 10:31] VITALS: BMI 32.4
[2020-08-01 11:45] LABS: Glucose,Whole Blood 126 mg/dL (75-99)
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
[2020-08-01 12:39] LABS: Eosinophils # (M) 0.25 k/uL (0-0.7); Lymphocytes # (M) 0.88 k/uL (1.0-4.8); Monocytes # (M) 1.38 k/uL (0-1.0); Neutrophils % (M) 80 %; Nucleated Red Blood Cells 0 /100 WBC (0-0); Total Cells Counted 100
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
[2020-08-01 16:49] LABS: Glucose,Whole Blood 218 mg/dL (75-99)
[2020-08-01 20:42] LABS: Glucose,Whole Blood 178 mg/dL (75-99)
[2020-08-01] MEDS: ATORVASTATIN 40 MG TAB PO SCH (21:11)
[2020-08-01] MEDS: INSULIN DETEMIR (LEVEMIR) 100 UNIT/ML SYR SQ SCH (21:11)
[2020-08-02] MEDS: ACETAMINOPHEN TAB 325 MG TAB PO PRN (02:26)
[2020-08-02 04:47] LABS: Anisocytosis Slight; HCT 26.5 % (39.0-53.0); HGB 8.7 gm/dL (13.0-17.5); Hypochromasia Slight; MCH 32.7 pg (25.0-35.0); MCHC 32.9 g/dL (31.0-37.0); MCV 99.4 fL (80.0-100.0); Macrocytosis Slight; Mean Platelet Volume 8.3; Platelet Count 315 k/uL (150-450); RBC 2.67 m/uL (4.30-5.90); RDW 17.5 % (11.5-15.5); WBC 9.8 k/uL (3.8-10.6)
[2020-08-02 04:59] LABS: African American GFR (CKD) >90 (>60 ml/min/1.73 sqM); Anion Gap 7 mmol/L; Blood Urea Nitrogen 47 mg/dL (9-20); Calcium 9.3 mg/dL (8.4-10.2); Carbon Dioxide 37 mmol/L (22-30); Chloride 93 mmol/L (98-107); Glucose 151 mg/dL (74-99); Non-African American GFR(CKD) >90 (>60 ml/min/1.73 sqM); Potassium 4.2 mmol/L (3.5-5.1); Sodium 137 mmol/L (137-145)
[2020-08-02] MEDS: metFORMIN 500 MG TAB PO SCH ×2 (06:30→17:52)
[2020-08-02] MEDS: PANTOPRAZOLE 40 MG TABLET PO SCH (06:30)
[2020-08-02] MEDS: INSULIN ASPART (NovoLOG) 100 UNIT/ML VIAL SQ SCH ×3 (06:30→17:56)
[2020-08-02] MEDS: LEVOTHYROXINE 100 MCG TAB PO SCH (06:30)
[2020-08-02 06:31] LABS: Glucose,Whole Blood 170 mg/dL (75-99)
[2020-08-02] MEDS: IPRATROPIUM-ALBUTEROL 3 ML NEB INHALATION SCH ×3 (08:01→17:16)
[2020-08-02] MEDS: BUDESONIDE 1 MG/2 ML NEBU INHALATION SCH (08:02)
[2020-08-02] MEDS: FORMOTEROL FUMARATE 20 MCG/2 ML NEBU INHALATION SCH (08:02)
[2020-08-02] MEDS: amLODIPine 5 MG TAB PO SCH (09:52)
[2020-08-02] MEDS: allopurinoL 100 MG TAB PO SCH (09:52)
[2020-08-02] MEDS: HEPARIN SODIUM,PORCINE 5,000 UNIT/ML 1 ML VIAL SQ SCH (09:52)
[2020-08-02] MEDS: MAGNESIUM OXIDE 400 MG TAB PO SCH (09:52)
[2020-08-02] MEDS: POTASSIUM CHLORIDE ER 10 MEQ TAB.ER.PRT PO SCH (09:52)
[2020-08-02] MEDS: FUROSEMIDE 40 MG TAB PO SCH (09:52)
[2020-08-02] MEDS: bisacodyL 10 MG SUPP RECTAL SCH (09:53)
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
[2020-08-02 11:46] LABS: Glucose,Whole Blood 121 mg/dL (75-99)
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
[2020-08-02 16:12] VITALS: BP 132/64; RESP 14; TEMP 98
[2020-08-02 17:29] VITALS: PULSE 92
[2020-08-02 17:34] LABS: Glucose,Whole Blood 171 mg/dL (75-99)
== END 2020-08-02 18:24 | DRG 963 ==
LOC: EC 14:01 → 2SICU 17:00
PROVIDERS: ADMIT Surgery; ATTEND Surgery
PROC: 0BH17EZ Insertion of Endotracheal Airway into Trachea, Via Natural or Artificial Opening (ICD-10-PCS; principal; 2020-07-17)
PROC: 3E033XZ Introduction of Vasopressor into Peripheral Vein, Percutaneous Approach (ICD-10-PCS; principal; 2020-07-17)
PROC: 06HC33Z Insertion of Infusion Device into Right Common Iliac Vein, Percutaneous Approach (ICD-10-PCS; principal; 2020-07-17)
PROC: 02HV33Z Insertion of Infusion Device into Superior Vena Cava, Percutaneous Approach (ICD-10-PCS; principal; 2020-07-17)
PROC: 5A1955Z Respiratory Ventilation, Greater than 96 Consecutive Hours (ICD-10-PCS; 2020-07-17)
PROC: 30233N1 Transfusion of Nonautologous Red Blood Cells into Peripheral Vein, Percutaneous Approach (ICD-10-PCS; 2020-07-17)
PROC: 5A09357 Assistance with Respiratory Ventilation, Less than 24 Consecutive Hours, Continuous Positive Airway Pressure (ICD-10-PCS; 2020-07-26)
PROC: 5A09357 Assistance with Respiratory Ventilation, Less than 24 Consecutive Hours, Continuous Positive Airway Pressure (ICD-10-PCS; 2020-07-28)
PROC: 5A09357 Assistance with Respiratory Ventilation, Less than 24 Consecutive Hours, Continuous Positive Airway Pressure (ICD-10-PCS; 2020-07-29)
PROC: 5A09357 Assistance with Respiratory Ventilation, Less than 24 Consecutive Hours, Continuous Positive Airway Pressure (ICD-10-PCS; 2020-07-31)
DX: S27.1XXA Traumatic hemothorax, initial encounter (principal); J96.01 Acute respiratory failure with hypoxia; S32.599A Other specified fracture of unspecified pubis, initial encounter for closed fracture; R57.1 Hypovolemic shock; S22.41XA Multiple fractures of ribs, right side, initial encounter for closed fracture; S12.400A Unspecified displaced fracture of fifth cervical vertebra, initial encounter for closed fracture; S32.039A Unspecified fracture of third lumbar vertebra, initial encounter for closed fracture; S32.049A Unspecified fracture of fourth lumbar vertebra, initial encounter for closed fracture; S32.60 Unspecified fracture of ischium; S32.029A Unspecified fracture of second lumbar vertebra, initial encounter for closed fracture; D62 Acute posthemorrhagic anemia; G93.40 Encephalopathy, unspecified; J90 Pleural effusion, not elsewhere classified; J98.11 Atelectasis; S27.329A Contusion of lung, unspecified, initial encounter; F11.20 Opioid dependence, uncomplicated; S36.892A Contusion of other intra-abdominal organs, initial encounter; V43.52XA Car driver injured in collision with other type car in traffic accident, initial encounter; Y92.410 Unspecified street and highway as the place of occurrence of the external cause; E03.9 Hypothyroidism, unspecified; E11.9 Type 2 diabetes mellitus without complications; E78.5 Hyperlipidemia, unspecified; E87.6 Hypokalemia; Z20.828 Contact with and (suspected) exposure to other viral communicable diseases; E87.70 Fluid overload, unspecified; I10 Essential (primary) hypertension; I25.10 Atherosclerotic heart disease of native coronary artery without angina pectoris; J44.9 Chronic obstructive pulmonary disease, unspecified; M41.9 Scoliosis, unspecified; M47.812 Spondylosis without myelopathy or radiculopathy, cervical region; M48.061 Spinal stenosis, lumbar region without neurogenic claudication; M50.30 Other cervical disc degeneration, unspecified cervical region; M51.34 Other intervertebral disc degeneration, thoracic region; M51.35 Other intervertebral disc degeneration, thoracolumbar region; M51.36 Other intervertebral disc degeneration, lumbar region; R31.29 Other microscopic hematuria; S16.1XXA Strain of muscle, fascia and tendon at neck level, initial encounter; S30.1XXA Contusion of abdominal wall, initial encounter; S30.22XA Contusion of scrotum and testes, initial encounter; S83.412A Sprain of medial collateral ligament of left knee, initial encounter; Z95.5 Presence of coronary angioplasty implant and graft; Z79.4 Long term (current) use of insulin; S06.0X0A Concussion without loss of consciousness, initial encounter; Z79.890 Hormone replacement therapy; Z79.899 Other long term (current) drug therapy; Z87.891 Personal history of nicotine dependence; Z91.19 Patient's noncompliance with other medical treatment and regimen; Z96.643 Presence of artificial hip joint, bilateral; Z63.4 Disappearance and death of family member; M25.70 Osteophyte, unspecified joint; I87.8 Other specified disorders of veins
CPT/HCPCS: 31500; 36415; 36430; 36556; 36600; 70450; 71045; 71260; 72052; 72125; 72128; 72131; 72170; 73501; 74177; 74420; 76604; 80048; 80053; 80306; 80320; 81001; 82533; 82550; 82805; 83036; 83605; 83735; 83880; 84132; 84484; 85025; 85027; 85610; 85730; 86850; 86900; 86901; 86920; 87040; 87070; 87205; 87635; 93005; 93306; 94002; 94003; 94640; 94660; 99291

== ENCOUNTER 2020-08-28 11:09 | Emergency (ER) | payer MEDICARE, BC ==
[2020-08-28 11:15] VITALS: RESP 18; TEMP 98.2
[2020-08-28 11:38] LABS: Glucose,Whole Blood 224 mg/dL (75-99)
[2020-08-28] MEDS ORDERED: DIPH,PERTUS(ACELL)TETVAC-LF 0.5 ML VIAL IM ONE (11:49)
[2020-08-28 11:56] LABS: Anisocytosis Slight; Basophils # (A) 0.1 k/uL (0-0.2); Basophils % (A) 1 %; Eosinophils # (A) 1.9 k/uL (0-0.7); Eosinophils % (A) 20 %; HCT 32.9 % (39.0-53.0); HGB 10.6 gm/dL (13.0-17.5); Lymphocytes # (A) 1.2 k/uL (1.0-4.8); Lymphocytes % (A) 13 %; MCH 31.8 pg (25.0-35.0); MCHC 32.1 g/dL (31.0-37.0); MCV 99.3 fL (80.0-100.0); Macrocytosis Slight; Mean Platelet Volume 7.7; Monocytes # (A) 0.4 k/uL (0-1.0); Monocytes % (A) 4 %; Neutrophils % (A) 62 %; Platelet Count 243 k/uL (150-450); RBC 3.32 m/uL (4.30-5.90); RDW 16.2 % (11.5-15.5); WBC 9.7 k/uL (3.8-10.6)
[2020-08-28 12:01] LABS: ALT 14 U/L (4-49); AST 20 U/L (17-59); African American GFR (CKD) >90 (>60 ml/min/1.73 sqM); Albumin 4.2 g/dL (3.5-5.0); Alcohol <10 mg/dL; Alkaline Phosphatase 123 U/L (38-126); Anion Gap 10 mmol/L; Blood Urea Nitrogen 28 mg/dL (9-20); Calcium 9.9 mg/dL (8.4-10.2); Carbon Dioxide 36 mmol/L (22-30); Chloride 94 mmol/L (98-107); Creatine Kinase 62 U/L (55-170); Glucose 226 mg/dL (74-99); Non-African American GFR(CKD) 86 (>60 ml/min/1.73 sqM); Potassium 4.1 mmol/L (3.5-5.1); Sodium 140 mmol/L (137-145); Total Bilirubin 0.6 mg/dL (0.2-1.3); Total Protein 7.4 g/dL (6.3-8.2)
[2020-08-28 12:05] LABS: INR 1.1 (<1.2); Partial Thromboplastin Time 26.8 sec (22.0-30.0); Prothrombin Time 11.6 sec (9.0-12.0)
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
[2020-08-28] MEDS ORDERED: cefTRIAXone IN SWFI 1,000 MG/10 ML SYRINGE IVP STA (12:41)
[2020-08-28] MEDS ORDERED: IPRATROPIUM-ALBUTEROL 3 ML NEB INHALATION STA (13:07)
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
[2020-08-28 13:26] LABS: Appearance,Urine Clear (Clear); Bilirubin,Urine Negative (Negative); Blood,Urine Negative (Negative); Color,Urine Yellow; Glucose,Urine (UA) Negative (Negative); Ketones,Urine Negative (Negative); Leukocyte Esterase,Urine Negative (Negative); Nitrite,Urine Negative (Negative); Protein,Urine Trace (Negative); Specific Gravity,Urine 1.014 (1.001-1.035); Urobilinogen,Urine <2.0 mg/dL (<2.0)
[2020-08-28 13:36] LABS: Amphetamine Screen,Urine Not Detected (NotDetected); Barbiturate Screen,Urine Not Detected (NotDetected); Benzodiazepines Screen,Urine Not Detected (NotDetected); Cocaine Screen,Urine Not Detected (NotDetected); Methadone Screen, Urine Not Detected (NotDetected); Opiate Screen,Urine Not Detected (NotDetected); Oxycodone Screen, Urine Not Detected (NotDetected); Phencyclidine Screen,Urine Not Detected (NotDetected); Tricyclic Antidepressant,Urine Not Detected (NotDetected); Urn Cannabinoid Scrn Not Detected (NotDetected)
[2020-08-28 13:51] VITALS: BP 147/64; PULSE 92
== END 2020-08-28 13:30 | disposition other institution (70) ==
LOC: EC 11:09
DX: T20.09XA Burn of unspecified degree of multiple sites of head, face, and neck, initial encounter (principal); T23.002A Burn of unspecified degree of left hand, unspecified site, initial encounter; T31.11 Burns involving 10-19% of body surface with 10-19% third degree burns; J44.1 Chronic obstructive pulmonary disease with (acute) exacerbation; J18.9 Pneumonia, unspecified organism; I10 Essential (primary) hypertension; E11.9 Type 2 diabetes mellitus without complications; Z79.899 Other long term (current) drug therapy; Z79.4 Long term (current) use of insulin; Z79.890 Hormone replacement therapy; Z79.1 Long term (current) use of non-steroidal anti-inflammatories (NSAID); Z87.891 Personal history of nicotine dependence; Z99.81 Dependence on supplemental oxygen; Z23 Encounter for immunization; X08.8XXA Exposure to other specified smoke, fire and flames, initial encounter; Y93.89 Activity, other specified; Y92.009 Unspecified place in unspecified non-institutional (private) residence as the place of occurrence of the external cause
CPT/HCPCS: 36415; 94640; 93005; 86900; 86901; 80053; 82550; 84484; 85025; 85610; 85730; 86850; 81003; 87040; 80306; 71045; 90715; 99285; 96374; 90471; G0480; J0696; 80320

== ENCOUNTER 2020-12-03 18:48 | Inpatient (IN) | payer MEDICARE, BC ==
[2020-12-03] MEDS ORDERED: methylPREDNISolone SOD SUCCI 125 MG/2 ML VIAL IV STA (18:52)
[2020-12-03] MEDS ORDERED: IPRATROPIUM 0.5 MG/2.5 ML NEBU INHALATION STA (18:52)
[2020-12-03] MEDS ORDERED: ALBUTEROL NEBULIZED 2.5 MG/3 ML INHALATION STA (18:52)
[2020-12-03 19:05] LABS: Glucose,Whole Blood 124 mg/dL (75-99)
[2020-12-03] MEDS ORDERED: cefTRIAXone IN SWFI 1,000 MG/10 ML SYRINGE IVP STA (19:05)
[2020-12-03 19:10] LABS: Basophils % (A) 1 %; Eosinophils # (A) 0.1 k/uL (0-0.7); Eosinophils % (A) 1 %; HCT 40.9 % (39.0-53.0); HGB 12.6 gm/dL (13.0-17.5); Hypochromasia Moderate; Lymphocytes # (A) 1.2 k/uL (1.0-4.8); Lymphocytes % (A) 14 %; MCH 30.5 pg (25.0-35.0); MCHC 30.8 g/dL (31.0-37.0); MCV 98.8 fL (80.0-100.0); Macrocytosis Slight; Mean Platelet Volume 8.7; Monocytes # (A) 0.6 k/uL (0-1.0); Monocytes % (A) 7 %; Neutrophils # (A) 6.8 k/uL (1.3-7.7); Neutrophils % (A) 76 %; Platelet Count 192 k/uL (150-450); RBC 4.14 m/uL (4.30-5.90); RDW 15.1 % (11.5-15.5); WBC 8.9 k/uL (3.8-10.6)
[2020-12-03 19:11] LABS: VBG PH 7.18 (7.31-7.41)
[2020-12-03 19:20] LABS: INR 1.1 (<1.2); Partial Thromboplastin Time 28.5 sec (22.0-30.0); Prothrombin Time 11.3 sec (9.0-12.0)
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
[2020-12-03 19:21] LABS: Calcium 9.8 mg/dL (8.4-10.2); Magnesium 2.6 mg/dL (1.6-2.3); Potassium 5.6 mmol/L (3.5-5.1); Total Bilirubin 0.4 mg/dL (0.2-1.3); Total Protein 7.1 g/dL (6.3-8.2)
--- NOTE | 2020-12-03 19:31 | XR ---
EXAMINATION TYPE: XR chest 1V portable DATE OF EXAM: 12/03/2020 COMPARISON: 08/28/2020 HISTORY: Short of breath TECHNIQUE: FINDINGS: There is opacification right lower hemithorax. There is no obvious heart failure. Left lung is relatively clear. There is some mild atelectasis left lung base. There are chest leads. IMPRESSION: There is large right pleural effusion significantly increased compared to old exam. No ob vious heart failure. There is mild atelectasis left lung base unchanged.
[2020-12-03] MEDS ORDERED: FUROSEMIDE 10 MG/ML 4 ML VIAL IV STA (19:35)
[2020-12-03] MEDS: FUROSEMIDE 10 MG/ML 4 ML VIAL IV SCH (21:10)
[2020-12-03] MEDS ORDERED: IPRATROPIUM-ALBUTEROL 3 ML NEB INHALATION PRN (21:26)
[2020-12-03] MEDS ORDERED: SODIUM CHLORIDE 0.9% 500 ML 500 ML IV ONE (21:26)
[2020-12-03] MEDS: SODIUM CHLORIDE 0.9% 1,000 ML IV SCH (21:35)
[2020-12-04 00:46] LABS: ABG Base Excess 7.2 mmol/L; ABG HCO3 33 mmol/L (21-25); ABG Oxygen Saturation 92.8 % (94-97); ABG PCO2 63 mmHg (35-45); ABG PH 7.33 (7.35-7.45); ABG PO2 67 mmHg (83-108); ABG TCO2 35 mmol/L (19-24)
[2020-12-04 00:48] LABS: Allen Test Performed? yes
[2020-12-04] MEDS: methylPREDNISolone SOD SUCCI 125 MG/2 ML VIAL IV SCH ×4 (02:35→16:59)
[2020-12-04 07:07] LABS: Glucose,Whole Blood 178 mg/dL (75-99)
[2020-12-04] MEDS: IPRATROPIUM-ALBUTEROL 3 ML NEB INHALATION SCH ×4 (07:41→20:39)
[2020-12-04] MEDS ORDERED: HYDROcodone/APAP 7.5-325MG 1 EACH TAB PO PRN (08:03)
[2020-12-04] MEDS ORDERED: ASPIRIN 325 MG TAB PO PRN (08:03)
[2020-12-04] MEDS ORDERED: CYCLOBENZAPRINE 5 MG TAB PO PRN (08:03)
[2020-12-04] MEDS ORDERED: IPRATROPIUM-ALBUTEROL 3 ML NEB INHALATION PRN (08:03)
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
[2020-12-04] MEDS ORDERED: amLODIPine 5 MG TAB PO SCH (09:00)
[2020-12-04] MEDS ORDERED: OMEGA FISH OIL PO SCH (09:00)
[2020-12-04] MEDS ORDERED: POTASSIUM CHLORIDE ER 10 MEQ TAB.ER.PRT PO SCH (09:00)
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
[2020-12-04] MEDS: LEVOTHYROXINE 100 MCG TAB PO SCH (10:11)
[2020-12-04] MEDS: allopurinoL 100 MG TAB PO SCH (10:11)
[2020-12-04] MEDS: CHOLECALCIFEROL 25 MCG (1000 IU) TABLET PO SCH (10:11)
[2020-12-04] MEDS: MAGNESIUM OXIDE 400 MG TAB PO SCH (10:11)
[2020-12-04] MEDS: metFORMIN 500 MG TAB PO SCH ×2 (10:11→21:18)
[2020-12-04] MEDS: FUROSEMIDE 10 MG/ML 4 ML VIAL IV SCH ×2 (10:12→21:25)
[2020-12-04] MEDS: INSULIN DETEMIR (LEVEMIR) 100 UNIT/ML SYR SQ SCH (10:12)
[2020-12-04] MEDS: EZETIMIBE 10 MG TAB PO SCH (10:12)
--- NOTE | 2020-12-04 10:19 | US ---
EXAMINATION TYPE: US chest DATE OF EXAM: 12/04/2020 COMPARISON: US 2019 CLINICAL HISTORY: Right pleural effusion. Exam done portable. TECHNIQUE: Targeted ultrasound of the posterior lower right hemithorax EXAM MEASUREMENTS: Right Pleural Effusion pocket size: 10.5 cm Right skin surface to fluid distance: 2.2 cm Lung seen within anterior portion of fluid pocket at a depth of 3.5cm Right side marked for possible thoracentesis outside the dept. Pulmonologists are able to review the images in the patient?s EMR. IMPRESSIONS: 1. Right pleural effusion
[2020-12-04] MEDS: SODIUM CHLORIDE 0.9% 1,000 ML IV SCH (11:42)
[2020-12-04 12:47] LABS: Amorphous Sediment,Urine Rare /hpf; Appearance,Urine Turbid (Clear); Bacteria,Urine Occasional /hpf; Bilirubin,Urine Negative (Negative); Blood,Urine Large (Negative); Color,Urine Yellow; Glucose,Urine (UA) Negative (Negative); Ketones,Urine Negative (Negative); Leukocyte Esterase,Urine Large (Negative); Mucus,Urine Rare /hpf; Nitrite,Urine Negative (Negative); PH, Urine 5.5 (5.0-8.0); Protein,Urine 2+ (Negative); RBC,Urine >182 /hpf (0-5); Specific Gravity,Urine 1.018 (1.001-1.035); Squamous Epithelial Cell,Urine 2 /hpf (0-4); Urobilinogen,Urine <2.0 mg/dL (<2.0); WBC,Urine 25 /hpf (0-5)
[2020-12-04] MEDS ORDERED: SODIUM CHLORIDE 0.9% 500 ML 500 ML IV ONE (15:27)
[2020-12-04] MEDS: CLOTRIMAZOLE 1% CREAM 30 GM TUBE TOPICAL SCH (16:25)
[2020-12-04] MEDS: INSULIN ASPART (NovoLOG) 100 UNIT/ML VIAL SQ SCH (17:09)
[2020-12-04 17:12] LABS: Glucose,Whole Blood 267 mg/dL (75-99)
[2020-12-04 18:17] LABS: ABG Base Excess 1.2 mmol/L; ABG HCO3 29 mmol/L (21-25); ABG Oxygen Saturation 86.6 % (94-97); ABG PH 7.22 (7.35-7.45); ABG PO2 61 mmHg (83-108); ABG TCO2 31 mmol/L (19-24); Allen Test Performed? Yes
[2020-12-04 18:25] LABS: ABG PCO2 72 mmHg (35-45)
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
--- NOTE | 2020-12-04 18:42 | XR ---
EXAMINATION TYPE: XR chest 1V portable DATE OF EXAM: 12/04/2020 COMPARISON: Yesterday HISTORY: Short of breath TECHNIQUE: FINDINGS: There is large right pleural effusion. There is small left pleural effusion. There is mild pelvic congestion. Heart is probably enlarged. There are chest leads. IMPRESSION: Pleural effusions larger on the right side. Mild heart failure is possible. Mild congesti on slightly increased compared to yesterday.
[2020-12-04 18:44] LABS: Glucose,Whole Blood 254 mg/dL (75-99)
[2020-12-04] MEDS ORDERED: SODIUM CHLORIDE 0.9% 1,000 ML IV ONE (18:55)
[2020-12-04 18:56] LABS: Creatine Kinase 50 U/L (55-170)
[2020-12-04 19:00] LABS: Calcium 9.4 mg/dL (8.4-10.2)
[2020-12-04 19:09] LABS: Creatine Kinase MB 8.1 ng/mL (0.0-2.4); Troponin I <0.012 ng/mL (0.000-0.034)
[2020-12-04 19:12] LABS: HCT 39.9 % (39.0-53.0); HGB 12.4 gm/dL (13.0-17.5); Hypochromasia Marked; MCH 31.6 pg (25.0-35.0); MCHC 31.1 g/dL (31.0-37.0); MCV 101.6 fL (80.0-100.0); Macrocytosis Slight; Mean Platelet Volume 9.1; Platelet Count 166 k/uL (150-450); RBC 3.92 m/uL (4.30-5.90); RDW 15.2 % (11.5-15.5); WBC 12.6 k/uL (3.8-10.6)
[2020-12-04 19:28] LABS: Potassium 6.2 mmol/L (3.5-5.1)
[2020-12-04] MEDS ORDERED: INSULIN REGULAR 100 UNIT/ML VIAL IV ONE (20:56)
[2020-12-04] MEDS ORDERED: LOSARTAN-HCTZ 50-12.5 MG 1 EACH TAB PO SCH (21:00)
[2020-12-04] MEDS ORDERED: DEXTROSE 50% SYRINGE 50 ML IVP STA (21:00)
[2020-12-04] MEDS: ATORVASTATIN 40 MG TAB PO SCH (21:18)
[2020-12-04] MEDS: ALPRAZolam 0.5 MG TAB PO PRN (21:18)
[2020-12-04] MEDS: NOREPINEPHRINE 8 MG in SODIUM CHLORIDE 0.9% 250 ML IV SCH (22:30)
[2020-12-05] MEDS: methylPREDNISolone SOD SUCCI 125 MG/2 ML VIAL IV SCH ×4 (00:25→18:25)
[2020-12-05] MEDS: INSULIN ASPART (NovoLOG) 100 UNIT/ML VIAL SQ SCH ×4 (00:59→18:24)
[2020-12-05 01:23] LABS: Glucose,Whole Blood 157 mg/dL (75-99)
[2020-12-05] MEDS: SODIUM CHLORIDE 0.9% 1,000 ML IV SCH ×2 (01:56→15:27)
[2020-12-05] MEDS: CLOTRIMAZOLE 1% CREAM 30 GM TUBE TOPICAL SCH ×3 (02:02→22:00)
[2020-12-05 02:55] LABS: HCT 41.1 % (39.0-53.0); HGB 12.5 gm/dL (13.0-17.5); Hypochromasia Marked; MCH 30.9 pg (25.0-35.0); MCHC 30.5 g/dL (31.0-37.0); MCV 101.5 fL (80.0-100.0); Macrocytosis Slight; Mean Platelet Volume 9.4; Platelet Count 207 k/uL (150-450); RBC 4.05 m/uL (4.30-5.90); RDW 15.3 % (11.5-15.5); WBC 18.2 k/uL (3.8-10.6)
[2020-12-05 03:01] LABS: Albumin 3.9 g/dL (3.5-5.0); Calcium 9.4 mg/dL (8.4-10.2); Total Bilirubin 0.3 mg/dL (0.2-1.3)
[2020-12-05 03:21] LABS: Potassium 6.4 mmol/L (3.5-5.1)
[2020-12-05] MEDS: NOREPINEPHRINE 8 MG in SODIUM CHLORIDE 0.9% 250 ML IV SCH ×3 (03:45→18:35)
[2020-12-05] MEDS ORDERED: INSULIN REGULAR 100 UNIT/ML VIAL IV ONE ×3 (03:51→20:00)
[2020-12-05] MEDS ORDERED: DEXTROSE 50% SYRINGE 50 ML IVP STA ×3 (03:52→20:00)
[2020-12-05 06:18] LABS: Glucose,Whole Blood 80 mg/dL (75-99)
[2020-12-05] MEDS: LEVOTHYROXINE 100 MCG TAB PO SCH (07:03)
[2020-12-05] MEDS ORDERED: PANTOPRAZOLE 40 MG TABLET PO SCH (07:30)
[2020-12-05] MEDS: IPRATROPIUM-ALBUTEROL 3 ML NEB INHALATION SCH ×4 (07:38→20:30)
--- NOTE | 2020-12-05 08:19 | XR ---
EXAMINATION TYPE: XR chest 1V portable DATE OF EXAM: 12/05/2020 COMPARISON: 02/20/1721 HISTORY: Pleural effusion TECHNIQUE: Single frontal view of the chest is obtained. FINDINGS: There is increasing bilateral pleural effusions greater on the right with near complete op acification the right hemithorax. There is to be a rib fracture involving the lower lateral right rib cage. No sizable pneumothorax. Increased interstitial pattern bilaterally. Cardiac silhouette obscur ed. Arthropathy shoulders. IMPRESSION: 1. Bilateral pleural effusions with a large effusion noted on the right increased from the prior exam . 2. correlate for right-sided rib fracture
--- NOTE | 2020-12-05 08:48 | P.PN ---
Subjective Principal diagnosis: Hypotension The patient after having significant hypoxia and hypotension was transferred to the ICU area the patient now is on Levothroid and still somewhat disoriented. He is complaining of thirst. Other than that he seems quite disoriented. Objective - Vital Signs Vital signs: Vital Signs Temp 97 F L 12/05/20 04:00 Pulse 93 12/05/20 08:01 Resp 32 H 12/05/20 07:00 BP 107/65 12/05/20 07:00 Pulse Ox 91 L 12/05/20 07:00 Intake & Output 12/04/20 12/05/20 12/05/20 18:59 06:59 18:59 Intake Total 4629.925 75 Output Total 165 0 Balance 4464.925 75 Weight 99.79 kg 110.3 kg Intake: IV 3250 75 Sodium Chloride 0.9% 1, 750 75 000 ml @ 75 mls/hr IV . [id number] [facility] Rx#:[id number] Sodium Chloride 0.9% 1, 2500 000 ml @ 999 mls/hr IV . Q1H1M ONE Rx#:[id number] Intake, IV Titration 1379.925 Amount Norepinephrine 8 mg In 304.925 Sodium Chloride 0.9% 250 ml @ 0.05 MCG/KG/MIN 9. 655 mls/hr IV .Q24H [facility] Rx#:[id number] Sodium Chloride 0.9% 1, 75 000 ml @ 75 mls/hr IV . [id number] [facility] Rx#:[id number] Sodium Chloride 0.9% 1, 1000 000 ml @ 999 mls/hr IV . Q1H1M ONE Rx#:[id number] Output: Urine 165 0 Other: Voiding Method Indwelling Catheter - Constitutional General appearance: Present: obese - EENT Eyes: Absent: abnormal pupil - Neck Neck: Absent: lymphadenopathy - Respiratory Respiratory: bilateral: diminished - Cardiovascular Rhythm: regular Heart sounds: normal: S1, S2 Abnormal Heart Sounds: Absent: S3 Gallop - Gastrointestinal General gastrointestinal: Present: soft. Absent: tenderness - Integumentary Integumentary: Absent: cellulitis - Labs CBC & Chem 7: 12/05/20 02:04 12/05/20 02:04 Labs: Abnormal Lab Results - Last 24 Hours (Table) 12/04/20 12/04/20 12/04/20 Range/Units 01:00 11:45 17:00 WBC (3.8-10.6) k/uL RBC (4.30-5.90) m/uL Hgb (13.0-17.5) gm/dL MCV (80.0-100.0) fL MCHC (31.0-37.0) g/dL ABG pH (7.35-7.45) ABG pCO2 (35-45) mmHg ABG pO2 (83-108) mmHg ABG HCO3 (21-25) mmol/L ABG Total CO2 (19-24) mmol/L ABG O2 Saturation (94-97) % Potassium (3.5-5.1) mmol/L BUN (9-20) mg/dL Creatinine (0.66-1.25) mg/dL Glucose (74-99) mg/dL POC Glucose (mg/dL) 267 H (75-99) mg/dL ALT (4-49) U/L Alkaline Phosphatase (38-126) U/L Total Creatine Kinase (55-170) U/L CK-MB (CK-2) (0.0-2.4) ng/mL Procalcitonin 0.20 H (0.02-0.09) ng/mL Urine Protein 2+ H (Negative) Urine Blood Large H (Negative) Ur Leukocyte Esterase Large H (Negative) Urine RBC >182 H (0-5) /hpf Urine WBC 25 H (0-5) /hpf Urine WBC Clumps Rare H (None) /hpf Amorphous Sediment Rare H (None) /hpf Urine Bacteria Occasional H (None) /hpf Urine Mucus Rare H (None) /hpf 12/04/20 12/04/20 12/04/20 Range/Units 18:14 18:23 18:23 WBC 12.6 H (3.8-10.6) k/uL RBC 3.92 L (4.30-5.90) m/uL Hgb 12.4 L (13.0-17.5) gm/dL MCV 101.6 H (80.0-100.0) fL MCHC (31.0-37.0) g/dL ABG pH 7.22 L (7.35-7.45) ABG pCO2 72 H* (35-45) mmHg ABG pO2 61 L (83-108) mmHg ABG HCO3 29 H (21-25) mmol/L ABG Total CO2 31 H (19-24) mmol/L ABG O2 Saturation 86.6 L (94-97) % Potassium (3.5-5.1) mmol/L BUN (9-20) mg/dL Creatinine (0.66-1.25) mg/dL Glucose (74-99) mg/dL POC Glucose (mg/dL) (75-99) mg/dL ALT (4-49) U/L Alkaline Phosphatase (38-126) U/L Total Creatine Kinase 50 L (55-170) U/L CK-MB (CK-2) 8.1 H (0.0-2.4) ng/mL Procalcitonin (0.02-0.09) ng/mL Urine Protein (Negative) Urine Blood (Negative) Ur Leukocyte Esterase (Negative) Urine RBC (0-5) /hpf Urine WBC (0-5) /hpf Urine WBC Clumps (None) /hpf Amorphous Sediment (None) /hpf Urine Bacteria (None) /hpf Urine Mucus (None) /hpf 12/04/20 12/04/20 12/05/20 Range/Units 18:23 18:43 01:21 WBC (3.8-10.6) k/uL RBC (4.30-5.90) m/uL Hgb (13.0-17.5) gm/dL MCV (80.0-100.0) fL MCHC (31.0-37.0) g/dL ABG pH (7.35-7.45) ABG pCO2 (35-45) mmHg ABG pO2 (83-108) mmHg ABG HCO3 (21-25) mmol/L ABG Total CO2 (19-24) mmol/L ABG O2 Saturation (94-97) % Potassium 6.2 H* (3.5-5.1) mmol/L BUN 61 H (9-20) mg/dL Creatinine 1.42 H (0.66-1.25) mg/dL Glucose 250 H (74-99) mg/dL POC Glucose (mg/dL) 254 H 157 H (75-99) mg/dL ALT (4-49) U/L Alkaline Phosphatase (38-126) U/L Total Creatine Kinase (55-170) U/L CK-MB (CK-2) (0.0-2.4) ng/mL Procalcitonin (0.02-0.09) ng/mL Urine Protein (Negative) Urine Blood (Negative) Ur Leukocyte Esterase (Negative) Urine RBC (0-5) /hpf Urine WBC (0-5) /hpf Urine WBC Clumps (None) /hpf Amorphous Sediment (None) /hpf Urine Bacteria (None) /hpf Urine Mucus (None) /hpf 12/05/20 12/05/20 Range/Units 02:04 02:04 WBC 18.2 H (3.8-10.6) k/uL RBC 4.05 L (4.30-5.90) m/uL Hgb 12.5 L (13.0-17.5) gm/dL MCV 101.5 H (80.0-100.0) fL MCHC 30.5 L (31.0-37.0) g/dL ABG pH (7.35-7.45) ABG pCO2 (35-45) mmHg ABG pO2 (83-108) mmHg ABG HCO3 (21-25) mmol/L ABG Total CO2 (19-24) mmol/L ABG O2 Saturation (94-97) % Potassium 6.4 H* (3.5-5.1) mmol/L BUN 60 H (9-20) mg/dL Creatinine 1.56 H (0.66-1.25) mg/dL Glucose (74-99) mg/dL POC Glucose (mg/dL) (75-99) mg/dL ALT 56 H (4-49) U/L Alkaline Phosphatase 157 H (38-126) U/L Total Creatine Kinase (55-170) U/L CK-MB (CK-2) (0.0-2.4) ng/mL Procalcitonin (0.02-0.09) ng/mL Urine Protein (Negative) Urine Blood (Negative) Ur Leukocyte Esterase (Negative) Urine RBC (0-5) /hpf Urine WBC (0-5) /hpf Urine WBC Clumps (None) /hpf Amorphous Sediment (None) /hpf Urine Bacteria (None) /hpf Urine Mucus (None) /hpf Microbiology - Last 24 Hours (Table) 12/04/20 11:45 Urine Culture - Preliminary Urine,Voided 12/03/20 19:30 Blood Culture - Preliminary Blood No Growth after 24 hours 12/03/20 19:30 Blood Culture - Preliminary Blood No Growth after 24 hours Assessment and Plan (1) Pleural effusion Current Visit: Yes Status: Acute Code(s): J90 - PLEURAL EFFUSION, NOT ELSEWHERE CLASSIFIED SNOMED Code(s): 57312782 (2) Acute exacerbation of chronic obstructive pulmonary disease Current Visit: Yes Status: Acute Code(s): J44.1 - CHRONIC OBSTRUCTIVE PULMONARY DISEASE W (ACUTE) EXACERBATION SNOMED Code(s): 612306829 (3) General weakness Current Visit: No Status: Acute Code(s): R53.1 - WEAKNESS SNOMED Code(s): 12527896 Plan: Given his multiple factorial issues. He has underlying pleural effusion. Continue cardiovascular support. New pack check CBC and CMP in a.m. per new El ement of hyperkalemia-labs this morning are pending. Appreciate pulmonology input. Prognosis is quite guarded secondary to his multiple comorbidities. Time with Patient: Greater than 30
[2020-12-05 09:53] LABS: Albumin 3.5 g/dL (3.5-5.0); Calcium 9.2 mg/dL (8.4-10.2); Total Bilirubin 0.4 mg/dL (0.2-1.3); Total Protein 6.5 g/dL (6.3-8.2)
[2020-12-05 10:00] LABS: Potassium 6.6 mmol/L (3.5-5.1)
--- NOTE | 2020-12-05 10:36 | PCN ---
PROCEDURE NOTE PROCEDURE: Right-sided thoracentesis. PREOPERATIVE DIAGNOSIS: Right pleural effusion. POSTOPERATIVE DIAGNOSIS: Right pleural effusion. OPERATORS: Dr. Kothari and Dr. Braswell. Indication Pleural effusion. A time-out was completed verifying correct patient, procedure, site, positioning, and implant (s) or special equipment if applicable. Ultrasound guidance was used and appropriate fluid pocket was identified and marked. Patient was positioned, prepped and draped in usual sterile fashion. Lidocaine was used to anesthetize the area. A Thoracentesis catheter was introduced into the pleural space and fluid was removed. Blood loss was none. A chest x-ray was ordered to evaluate for pneumothorax. Total Fluid Removed: 1.4 L. Color of Fluid: Yellow. Fluid was sent for appropriate laboratory tests. Patient tolerated the procedure well and there were no complications. There was 1.4 L of yellow fluid removed from the right pleural space. The right posterior chest was marked by ultrasound. The fluid will be sent for analysis including chemistry, cytology, and microbiology. There was no immediate complication. A chest x-ray was ordered to check to make sure there was no pneumothorax or any complications from the procedure. The patient tolerated the procedure well. The fluid was sent for analysis. MMODL / IJN: [id number] /
--- NOTE | 2020-12-05 10:56 | XR ---
EXAMINATION TYPE: XR chest 1V portable DATE OF EXAM: 12/05/2020 Comparison: 12/05/2020 Clinical History: 65-year-old male thoracentesis - 1,400mL out Findings: Heart mildly enlarged. Residual small right pleural effusion and trace left pleural effusion remains. No appreciable pneumothorax. Impression: Mild cardiomegaly. Residual small right and trace left effusions after right-sided thoracentesis. No appreciable pneumothorax.
[2020-12-05] MEDS: MAGNESIUM OXIDE 400 MG TAB PO SCH ×2 (10:58→11:17)
[2020-12-05] MEDS: FUROSEMIDE 10 MG/ML 4 ML VIAL IV SCH ×2 (10:58→20:47)
[2020-12-05] MEDS: allopurinoL 100 MG TAB PO SCH ×2 (10:58→11:17)
[2020-12-05] MEDS: metFORMIN 500 MG TAB PO SCH ×3 (10:58→20:16)
[2020-12-05] MEDS: CHOLECALCIFEROL 25 MCG (1000 IU) TABLET PO SCH ×2 (10:58→11:17)
[2020-12-05] MEDS: PANTOPRAZOLE 40 MG/10 ML VIAL IVP SCH (10:59)
[2020-12-05] MEDS ORDERED: SODIUM POLYSTYRENE SULFONATE 15 GM/60 ML BOTTLE PO STA (11:03)
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
[2020-12-05] MEDS ORDERED: CALCIUM GLUCONATE 1 GM in SODIUM CHLORIDE 0.9% 100 ML IVPB ONE ×2 (11:04→20:00)
[2020-12-05] MEDS: INSULIN DETEMIR (LEVEMIR) 100 UNIT/ML SYR SQ SCH (11:11)
[2020-12-05] MEDS: EZETIMIBE 10 MG TAB PO SCH (11:17)
[2020-12-05 11:20] LABS: Glucose,Whole Blood 125 mg/dL (75-99)
[2020-12-05] MEDS ORDERED: SODIUM POLYSTYRENE SULFONATE 30 GM/120 ML BOTTLE RECTAL STA ×2 (11:33→19:59)
[2020-12-05] MEDS ORDERED: ATROPINE SULFATE 0.1 MG/ML 10ML SYRINGE ONE (11:50)
[2020-12-05 11:55] LABS: Glucose,Whole Blood 176 mg/dL (75-99)
--- NOTE | 2020-12-05 13:14 | ECHOF ---
Referral Reason:Pleural Effusions MEASUREMENTS -------- HEIGHT: 177.8 cm WEIGHT: 110.2 kg BP: 87/59 RVIDd: 3.5 cm (< 3.3) IVSd: 1.2 cm (0.6 - 1.1) LVIDd: 4.9 cm (3.9 - 5.3) LVPWd: 1.2 cm (0.6 - 1.1) IVSs: 1.6 cm LVIDs: 3.6 cm LVPWs: 2.0 cm LA Diam: 3.3 cm (2.7 - 3.8) LAESV Index (A-L): 19.07 ml/m Ao Diam: 2.7 cm (2.0 - 3.7) MV EXCURSION: 23.601 mm (> 18.000) MV EF SLOPE: 86 mm/s (70 - 150) EPSS: 1.6 cm MV E Frank: 1.05 m/s MV DecT: 179 ms MV A Frank: 0.78 m/s MV E/A Ratio: 1.34 RAP: 15.00 mmHg RVSP: 42.48 mmHg FINDINGS -------- This was a technically difficult study with suboptimal views. The left ventricular size is normal. There is mild concentric left ventricular hypertrophy. Overa ll left ventricular systolic function is mild-moderately impaired with, an EF between 40 - 45 %. The right ventricle is mildly enlarged. Normal LA size by volume 22+/-6 ml/m2. The right atrium is normal in size. 4 ml of Lumason was utilized for enhancement of images. Interatrial and interventricular septum intact. The aortic valve was not well visualized. The mitral valve is normal. Mild tricuspid regurgitation present. There is mild pulmonary hypertension. The right ventricular systolic pressure, as measured by Doppler, is 42.48mmHg. The pulmonic valve was not well visualized. The aortic root size is normal. The inferior vena cava is dilated with no significant inspiratory collapse which is consistent estima dasia right atrial pressure of >15 mmHg. There is no pericardial effusion. CONCLUSIONS -------- 1. The left ventricular size is normal. 2. There is mild concentric left ventricular hypertrophy. 3. Overall left ventricular systolic function is mild-moderately impaired with, an EF between 40 - 45 %. 4. The right ventricle is mildly enlarged. 5. 4 ml of Lumason was utilized for enhancement of images. 6. Mild tricuspid regurgitation present. 7. There is mild pulmonary hypertension. 8. The right ventricular systolic pressure, as measured by Doppler, is 42.48mmHg. 9. The inferior vena cava is dilated with no significant inspiratory collapse which is consistent est imated right atrial pressure of >15 mmHg. 10. There is no pericardial effusion. UPHOLSTERER INSIDE: Mackenzie Nicole RDCS
[2020-12-05 14:52] LABS: Appearance,BF Clear
[2020-12-05 14:54] LABS: Nucleated Cells, Body Fluid 75 /uL; RBC, Body Fluid 390 /uL
[2020-12-05 15:20] LABS: Mononuclear WBC,Body Fluid 32 %; Polynuclear WBC,Body Fluid 68 %; Total Cells Counted,Body Fluid 100
[2020-12-05] MEDS ORDERED: KETOROLAC 15 MG/ML 1 ML VIAL IVP ONE (18:00)
[2020-12-05 18:04] LABS: Glucose,Whole Blood 145 mg/dL (75-99)
[2020-12-05] MEDS ORDERED: ALBUTEROL NEBULIZED 2.5 MG/3 ML INHALATION PRN (20:02)
[2020-12-05] MEDS: ATORVASTATIN 40 MG TAB PO SCH (20:16)
[2020-12-05] MEDS ORDERED: ALBUTEROL NEB (CONC) 2.5 MG/0.5 ML INHALATION ONE (20:18)
[2020-12-05] MEDS ORDERED: DILTIAZEM DRIP BOLUS FROM BAG 1 MG SOLN IV ONE (23:50)
[2020-12-06] MEDS ORDERED: DILTIAZEM 125 MG in SODIUM CHLORIDE 0.9% 100 ML IV SCH ×2
[2020-12-06 00:54] LABS: ABG Base Excess -2.1 mmol/L; ABG HCO3 26 mmol/L (21-25); ABG Oxygen Saturation 87.8 % (94-97); ABG PCO2 65 mmHg (35-45); ABG PH 7.23 (7.35-7.45); Allen Test Performed? Yes
[2020-12-06 00:59] LABS: ABG PO2 58 mmHg (83-108)
[2020-12-06 01:00] LABS: Glucose,Whole Blood 160 mg/dL (75-99)
[2020-12-06] MEDS: methylPREDNISolone SOD SUCCI 125 MG/2 ML VIAL IV SCH ×4 (01:04→18:04)
[2020-12-06] MEDS: INSULIN ASPART (NovoLOG) 100 UNIT/ML VIAL SQ SCH ×4 (01:05→18:02)
[2020-12-06 03:07] LABS: Albumin 3.6 g/dL (3.5-5.0); Calcium 9.4 mg/dL (8.4-10.2); Total Bilirubin 0.6 mg/dL (0.2-1.3)
[2020-12-06 03:12] LABS: HCT 43.6 % (39.0-53.0); HGB 13.3 gm/dL (13.0-17.5); Hypochromasia Marked; MCHC 30.4 g/dL (31.0-37.0); MCV 101.7 fL (80.0-100.0); Macrocytosis Slight; Mean Platelet Volume 9.3; Platelet Count 242 k/uL (150-450); RBC 4.28 m/uL (4.30-5.90); RDW 15.3 % (11.5-15.5); WBC 20.2 k/uL (3.8-10.6)
[2020-12-06 03:30] LABS: Potassium 6.9 mmol/L (3.5-5.1)
[2020-12-06] MEDS ORDERED: INSULIN REGULAR 100 UNIT/ML VIAL IV ONE ×2 (04:03→16:04)
[2020-12-06] MEDS ORDERED: DEXTROSE 50% SYRINGE 50 ML IVP STA ×2 (04:03→16:04)
[2020-12-06] MEDS ORDERED: SODIUM POLYSTYRENE SULFONATE 15 GM/60 ML BOTTLE PO ONE (04:03)
[2020-12-06] MEDS: SODIUM CHLORIDE 0.9% 1,000 ML IV SCH (04:41)
[2020-12-06] MEDS: ALPRAZolam 0.5 MG TAB PO PRN (04:56)
[2020-12-06 05:12] LABS: Glucose, BF Source Pleural Fluid; Glucose, Body Fluid 126 mg/dL; LDH, Body Fluid Source Pleural Fluid
[2020-12-06 05:56] LABS: Glucose,Whole Blood 138 mg/dL (75-99)
[2020-12-06] MEDS: LEVOTHYROXINE 100 MCG TAB PO SCH (06:16)
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
[2020-12-06] MEDS ORDERED: ALBUTEROL NEBULIZED 2.5 MG/3 ML INHALATION SCH (08:00)
[2020-12-06] MEDS ORDERED: SODIUM BICARB 8.4% 50 ML SYR (1 MEQ/ML) IV STA ×3 (08:15→16:05)
[2020-12-06] MEDS ORDERED: DEXTROSE 5% IN WATER 100 ML with AMIODARONE 150 MG IV ONE (08:15)
[2020-12-06] MEDS ORDERED: AMIODARONE 360 MG in DEXTROSE 5% IN WATER 200 ML IV ONE ×4 (08:30→14:30)
[2020-12-06] MEDS ORDERED: SODIUM CHLORIDE 0.45% 1,000 ML with SODIUM BICARB (1 MEQ/ML) 50 ML IV SCH ×2 (08:30)
[2020-12-06] MEDS: IPRATROPIUM-ALBUTEROL 3 ML NEB INHALATION SCH ×4 (08:48→21:09)
--- NOTE | 2020-12-06 09:23 | CONS ---
CONSULTATION Haris Shen is a 65-year-old gentleman with significant history of COPD, came in with what seems to be an exacerbation of COPD and also there was a question of infection, although blood cultures have not grown anything and he is COVID negative. He has history of diabetes, hypertension, COPD with the tobacco abuse, which he continues to do. He also has what seems to be a CO2 retention type picture. He came in with hypercapnic respiratory failure type picture which improved on BiPAP, then was found to have a significant pleural effusion that was tapped of nearly 1.4 L. Then he went into atrial fibrillation and we were consulted in this regard. The patient's ejection fraction in June was about 50% and after he went into atrial fib, the echo reveals an ejection fraction in the 45% range. The patient is lethargic at the time of my evaluation and does not communicate much. He is acidotic also. Echo revealed right- sided pressures in the 45% range. Ejection fraction is also in the 40% to 45% range. Clinically there is no evidence to suggest prior obstructive CAD for this patient. His rhythm appears to be atrial fib at a rate of about 120 beats per minute. PAST MEDICAL HISTORY: 1. Diabetes. 2. Hypertension. 3. Hyperlipidemia. 4. Smoking and COPD. 5. History of hypothyroidism on replacement therapy. Please refer to the detailed note by [employer] for other information. PHYSICAL EXAMINATION: On examination, blood pressure is 98/60. Patient is on a high dose of Levophed. Pulse rate is about 120 to 125 beats per minute irregular. JVD 1 cm. No carotid bruit. S1, S2 heard normally, but distantly. Lungs reveal diminished bilateral air entry. Abdomen is soft. Lower extremities reveal diminished pulses. Central nervous system assessment was not performed. IMPRESSION: 1. Hypercapnic respiratory failure with hypercapnia and hypoxia. 2. Atrial fibrillation with rapid ventricular rate. 3. History of pleural effusion, status post thoracentesis yesterday. 4. History of diabetes. 5. Hypertension. 6. Hyperlipidemia. 7. Hyperkalemia, patient's potassium is 6.7. RECOMMENDATIONS: I am recommending that we use IV amiodarone bolus and drip for rate control. Discontinue IV Cardizem. I am recommending Kayexalate to be given either as orally or if he is unable to swallow, give it as an enema 30 grams in sorbitol. I am also recommending that we can give him some IV bicarbonate one amp and also place a bicarbonate drip and seek further input from Nephrology. Overall prognosis appears to be guarded for this patient. Thank you very much for the consult. KARL / KALLI: [id number] /
[2020-12-06 09:45] LABS: Calcium 9.5 mg/dL (8.4-10.2); Magnesium 2.4 mg/dL (1.6-2.3)
[2020-12-06] MEDS: SODIUM POLYSTYRENE SULFONATE 30 GM/120 ML BOTTLE RECTAL STA ×2 (10:16→12:31)
[2020-12-06] MEDS: CHOLECALCIFEROL 25 MCG (1000 IU) TABLET PO SCH (10:22)
[2020-12-06] MEDS: allopurinoL 100 MG TAB PO SCH (10:22)
[2020-12-06] MEDS: INSULIN DETEMIR (LEVEMIR) 100 UNIT/ML SYR SQ SCH (10:22)
[2020-12-06] MEDS: metFORMIN 500 MG TAB PO SCH (10:23)
[2020-12-06] MEDS: MAGNESIUM OXIDE 400 MG TAB PO SCH (10:23)
--- NOTE | 2020-12-06 10:31 | PCN ---
PROCEDURE NOTE PULMONARY/CRITICAL CARE PROCEDURE NOTES: PROCEDURE: Right femoral triple-lumen catheter. Reason for the triple-lumen catheter was fluid administration and administration of vasopressors. OPERATORS: Dr. French Chua Dr. Graham. TRIPLE LUMEN CATHETER PLACEMENT: Indication: Hemodynamic monitoring/Intravenous access. A time-out was completed verifying correct patient, procedure, site, positioning, and implant(s) or special equipment if applicable. The patient was placed in a dependent position appropriate for triple lumen catheter placement based on the vein to be cannulated. The patient's right groin was prepped and draped in sterile fashion. 1% Lidocaine was used to anesthetize the surrounding skin area. A triple lumen 9F Cordis catheter was introduced into the right common femoral vein using Seldinger technique. The catheter was threaded smoothly over the guide wire and appropriate blood return was obtained. Each lumen of the catheter was evacuated of air and flushed with sterile saline. The catheter was then sutured in place to the skin and a sterile dressing applied. Perfusion to the extremity distal to the point of catheter insertion was checked and found to be adequate. PROCEDURE: Right femoral arterial line. Reason for the right femoral art line is frequent blood draws and blood gas monitoring. OPERATORS: Dr. Kothari, Dr. Braswell, Dr. Wade. ARTERIAL LINE PLACEMENT: Indications: Hemodynamic monitoring. A time-out was completed verifying correct patient, procedure, site, positioning, and implant(s) or special equipment if applicable. Rasta's test was performed to ensure adequate perfusion. The patient's right groin was prepped and draped in sterile fashion. 1% Lidocaine was used to anesthetize the area. An 18G Arrow arterial line was introduced into the right femoral artery. The catheter was threaded over the guide wire and the needle was removed with appropriate pulsatile blood return. Blood loss was minimal. The catheter was then sutured in place to the skin and a sterile dressing applied. Perfusion to the extremity distal to the point of catheter insertion was checked and found to be adequate. The patient tolerated the procedure well and there were no complications. There was informed consent and universal timeout. The patient tolerated the procedure well. The catheters were sutured in place. Sterile dressing was applied. No immediate complication. The patient tolerated the procedure well. In regard to the femoral triple-lumen catheter, there was good blood return from all 3 ports and in regards to the femoral art line, there was good wave form. MMODL / IJN: [id number] /
--- NOTE | 2020-12-06 10:40 | P.PN ---
Subjective Principal diagnosis: Hypotension The patient after having significant hypoxia and hypotension was transferred to the ICU area the patient now is on Levothroid and still somewhat disoriented. He is complaining of thirst. Other than that he seems quite disoriented. The patient is essentially looking more respiratory fatigued. Urinary output is poor and he started have significant renal failure. Objective - Vital Signs Vital signs: Vital Signs Temp 97.2 F L 12/06/20 00:00 Pulse 90 12/06/20 09:15 Resp 15 12/06/20 09:15 BP 109/62 12/06/20 09:15 Pulse Ox 84 L 12/06/20 09:15 Intake & Output 12/05/20 12/06/20 12/06/20 18:59 06:59 18:59 Intake Total 9039.633 5663.233 230 Output Total 1550 150 30 Balance -44.341 1133.233 200 Weight 110.1 kg Intake: IV 1050 1080 230 Calcium Gluconate 1 gm In 100 Sodium Chloride 0.9% 100 ml @ 100 mls/hr IVPB ONCE ONE Rx#:[id number] Calcium Gluconate 1 gm In 100 Sodium Chloride 0.9% 100 ml @ 100 mls/hr IVPB ONCE ONE Rx#:[id number] Diltiazem 125 mg In 30 5 Sodium Chloride 0.9% 100 ml @ 5 MG/HR 5 mls/hr IV .Q24H [facility] Rx#:[id number] Sodium Chloride 0.9% 1, 900 900 225 000 ml @ 75 mls/hr IV . [id number] [facility] Rx#:[id number] cefTRIAXone 1 gm In 50 50 Sodium Chloride 0.9% 50 ml @ 100 mls/hr IVPB Q24H [facility] Rx#:[id number] Intake, IV Titration 455.659 203.233 Amount Norepinephrine 8 mg In 455.659 203.233 Sodium Chloride 0.9% 250 ml @ 0.05 MCG/KG/MIN 9. 655 mls/hr IV .Q24H [facility] Rx#:[id number] Output: Drainage 1400 Right Back 1400 Urine 150 150 30 Other: Voiding Method Indwelling Catheter Indwelling Catheter - Constitutional General appearance: Present: obese. Absent: cooperative - EENT Eyes: Absent: abnormal pupil - Neck Neck: Absent: lymphadenopathy - Respiratory Respiratory: bilateral: diminished - Cardiovascular Rhythm: regular Heart sounds: normal: S1, S2 Abnormal Heart Sounds: Absent: S3 Gallop - Gastrointestinal General gastrointestinal: Present: soft. Absent: tenderness - Integumentary Integumentary: Absent: cyanotic - Musculoskeletal Musculoskeletal: Present: generalized weakness - Psychiatric Psychiatric: Absent: A&O x's 3 - Labs CBC & Chem 7: 12/06/20 02:13 12/06/20 08:54 Labs: Abnormal Lab Results - Last 24 Hours (Table) 12/05/20 12/05/20 12/05/20 Range/Units 11:07 11:54 17:42 WBC (3.8-10.6) k/uL RBC (4.30-5.90) m/uL MCV (80.0-100.0) fL MCHC (31.0-37.0) g/dL ABG pH (7.35-7.45) ABG pCO2 (35-45) mmHg ABG pO2 (83-108) mmHg ABG HCO3 (21-25) mmol/L ABG O2 Saturation (94-97) % Potassium 6.7 H* (3.5-5.1) mmol/L BUN (9-20) mg/dL Creatinine (0.66-1.25) mg/dL Glucose (74-99) mg/dL POC Glucose (mg/dL) 125 H 176 H (75-99) mg/dL Magnesium (1.6-2.3) mg/dL Alkaline Phosphatase (38-126) U/L 12/05/20 12/06/20 12/06/20 Range/Units 18:03 00:40 00:59 WBC (3.8-10.6) k/uL RBC (4.30-5.90) m/uL MCV (80.0-100.0) fL MCHC (31.0-37.0) g/dL ABG pH 7.23 L (7.35-7.45) ABG pCO2 65 H (35-45) mmHg ABG pO2 58 L* (83-108) mmHg ABG HCO3 26 H (21-25) mmol/L ABG O2 Saturation 87.8 L (94-97) % Potassium (3.5-5.1) mmol/L BUN (9-20) mg/dL Creatinine (0.66-1.25) mg/dL Glucose (74-99) mg/dL POC Glucose (mg/dL) 145 H 160 H (75-99) mg/dL Magnesium (1.6-2.3) mg/dL Alkaline Phosphatase (38-126) U/L 12/06/20 12/06/20 12/06/20 Range/Units 02:13 02:13 05:54 WBC 20.2 H (3.8-10.6) k/uL RBC 4.28 L (4.30-5.90) m/uL MCV 101.7 H (80.0-100.0) fL MCHC 30.4 L (31.0-37.0) g/dL ABG pH (7.35-7.45) ABG pCO2 (35-45) mmHg ABG pO2 (83-108) mmHg ABG HCO3 (21-25) mmol/L ABG O2 Saturation (94-97) % Potassium 6.9 H* (3.5-5.1) mmol/L BUN 71 H (9-20) mg/dL Creatinine 1.81 H (0.66-1.25) mg/dL Glucose 134 H (74-99) mg/dL POC Glucose (mg/dL) 138 H (75-99) mg/dL Magnesium (1.6-2.3) mg/dL Alkaline Phosphatase 140 H (38-126) U/L 12/06/20 Range/Units 08:54 WBC (3.8-10.6) k/uL RBC (4.30-5.90) m/uL MCV (80.0-100.0) fL MCHC (31.0-37.0) g/dL ABG pH (7.35-7.45) ABG pCO2 (35-45) mmHg ABG pO2 (83-108) mmHg ABG HCO3 (21-25) mmol/L ABG O2 Saturation (94-97) % Potassium 6.0 H (3.5-5.1) mmol/L BUN 71 H (9-20) mg/dL Creatinine 1.93 H (0.66-1.25) mg/dL Glucose 125 H (74-99) mg/dL POC Glucose (mg/dL) (75-99) mg/dL Magnesium 2.4 H (1.6-2.3) mg/dL Alkaline Phosphatase (38-126) U/L Microbiology - Last 24 Hours (Table) 12/05/20 06:00 Gram Stain - Preliminary Pleural Fluid Body Fluid Culture - Preliminary 12/05/20 06:00 Acid Fast Bacilli Smear - Final Pleural Fluid Acid Fast Bacilli Culture - Preliminary 12/03/20 19:30 Blood Culture - Preliminary Blood No Growth after 48 hours 12/03/20 19:30 Blood Culture - Preliminary Blood No Growth after 48 hours 12/05/20 06:00 Fungal Culture - Preliminary Pleural Fluid 12/04/20 11:45 Urine Culture - Final Urine,Voided Assessment and Plan (1) Pleural effusion Current Visit: Yes Status: Acute Code(s): J90 - PLEURAL EFFUSION, NOT ELSE WHERE CLASSIFIED SNOMED Code(s): 63093012 (2) Acute exacerbation of chronic obstructive pulmonary disease Current Visit: Yes Status: Acute Code(s): J44.1 - CHRONIC OBSTRUCTIVE PULMONARY DISEASE W (ACUTE) EXACERBATION SNOMED Code(s): 209205570 (3) General weakness Current Visit: No Status: Acute Code(s): R53.1 - WEAKNESS SNOMED Code(s): 86518657 Plan: Given his multiple factorial issues. He has underlying pleural effusion. Continue cardiovascular support. CBC and CMP in a.m. per new Element of hyperkalemia-labs this morning are pending. Appreciate pulmonology input. Prognosis is quite guarded secondary to his multiple comorbidities. I suspect the patient will need more respiratory support and possible intubation.
[2020-12-06] MEDS: FUROSEMIDE 10 MG/ML 4 ML VIAL IV SCH (10:53)
[2020-12-06] MEDS: HEPARIN SODIUM,PORCINE 5,000 UNIT/ML 1 ML VIAL SQ SCH ×2 (10:54→16:44)
[2020-12-06] MEDS: PANTOPRAZOLE 40 MG/10 ML VIAL IVP SCH (11:02)
--- NOTE | 2020-12-06 11:10 | XR ---
EXAMINATION TYPE: XR chest 1V portable DATE OF EXAM: 12/06/2020 COMPARISON: 12/05/2020 HISTORY: Shortness of breath TECHNIQUE: Single frontal view of the chest is obtained. FINDINGS: Bilateral lower lobe consolidation and pleural effusion. No sizable pneumothorax. Heart si ze stable and enlarged. Underlying COPD noted. Hypertrophic change of the spine. Limited inspiration. IMPRESSION: 1. Increasing bilateral lower lobe infiltrate and pleural effusion
[2020-12-06 11:35] LABS: Glucose,Whole Blood 158 mg/dL (75-99)
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
[2020-12-06] MEDS ORDERED: SODIUM CHLORIDE 0.9% 1,000 ML IV SCH (12:45)
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
--- NOTE | 2020-12-06 13:33 | US ---
EXAMINATION TYPE: US kidneys/renal and bladder DATE OF EXAM: 12/06/2020 COMPARISON: CT 2019 CLINICAL HISTORY: shalom. EXAM MEASUREMENTS: Right Kidney: 10.9 x 5.5 x 6.7 cm Left Kidney: 10.4 x 6.5 x 5.4 cm Technically difficult study performed portably in ICU on patient sitting upright having difficulty br eathing. Right Kidney: No hydronephrosis or masses seen Left Kidney: No hydronephrosis or masses seen Bladder: not imaged, patient has catheter. Small amount of ascites The gallbladder sludge or small gallstones. IMPRESSION: 1. No hydronephrosis or nephrolithiasis. 2. Small amount of ascites with findings suggestive of cholelithiasis or gallbladder sludge.
[2020-12-06] MEDS ORDERED: AMIODARONE 450 MG in DEXTROSE 5% IN WATER 250 ML IV SCH ×2 (14:30)
[2020-12-06 14:43] LABS: Calcium 9.3 mg/dL (8.4-10.2)
[2020-12-06] MEDS: CLOTRIMAZOLE 1% CREAM 30 GM TUBE TOPICAL SCH ×2 (14:59→21:47)
[2020-12-06 15:03] LABS: Potassium 6.1 mmol/L (3.5-5.1)
--- NOTE | 2020-12-06 15:03 | CDI ---
Documentation Clarification Form Date: 12/06/2020 02:48:25 PM From: Hallie VasquezJANNETTE pineda, CCDS Admit Date: 12/03/2020 09:27:00 PM Patient Name: Haris Shen Visit Number: [id number] Discharge Date: ATTENTION: The Clinical Documentation Specialists (CDI) and [facility] Coding Staff appreciate your assistance in clarifying documentation. Please respond to the clarification below the line at the bottom and electronically sign. The CDI & [facility] Coding staff will review the response and follow-up if needed. Please note: Queries are made part of the Legal Health Record. If you have any questions, please contact the author of this message via ITS. Dr. Rustam Potts: The patient presented with the following clinical indicators. Additional clarification regarding the etiology/cause of the clinical indicators is requested. History/Risk Factors per the 12/03 ED Note Past Medical History: COPD, DM, Hypertension, Former smoker. Per the 12/04 Pulmonary Consult: "Dysuria suspect UTI, cultures pending." Per the 12/06 Nephrology Consult: "Shock maintained on Levophed." Clinical Indicators: Presented to the ED on 12/03 via EMS with SOB and Altered Mental Status, Hypoxic and lethargic on arrival. ED Clinical Impression: Acute exacerbation of COPD. 12/03 VS: T 97.0, P 112, R 10 0- 22, BP 133/102, PO 96 40% BiPAP 12/05 VS: T 95.2, P 73, R 32 (SOB, accessory use, shallow, Tachypnea, Talks in phrases), BP 71/50, PO 90 70% BiPAP 12/03 LAB: WBC 8.9, K 5.6, BUN 58, Gluc 156, Lactic Acid 2.1, Mag 2.6, AST 65, ALT 58, Alk Phos 185 12/03 VBG: pH 7.18, pCO2 94, HCO3 34 12/03 COVID negative 12/03 Blood cultures x2: preliminary: neg @ 48 hrs. 12/04 Urine Cx: final: negative. 12/04 UA: turbid, 2+ Protein, Large Blood, Negative nitrite, Large Esterase, RBC>182, WBC 25 12/05 Thoracentesis pleural fluid cultures: Pending. Treatment 12/03: INH Ventolin, INH Atrovent, IV Solumedrol, IV Rocephin, IV Lasix, IV fluid 500 mls @ 999 mls/hr q31M, IV fluid 1,000 mls @ 75 mls/hr q13H 12/04 IV Levophed, IV Insulin, IV Rocephin 12/05 Transferred to ICU with Hypoxia & Disorientation. In your professional opinion, please clarify if these findings signify one of the following conditions: [ ] Sepsis POA [ ] Sepsis, Not POA [ ] Severe Sepsis with organ failure [ ] Septic Shock-This is the correct dx [ ] Other, please specify [ ] Unable to determine (Template Last Reviewed: October 2020) MTDD
[2020-12-06] MEDS ORDERED: CALCIUM GLUCONATE 1 GM in SODIUM CHLORIDE 0.9% 100 ML IVPB ONE (16:03)
[2020-12-06] MEDS ORDERED: FUROSEMIDE 10 MG/ML 10 ML VIAL IV STA ×3 (16:06→21:29)
[2020-12-06] MEDS ORDERED: DEXTROSE 50% SYRINGE 50 ML IVP ONE (16:50)
--- NOTE | 2020-12-06 16:55 | PN ---
PROGRESS NOTE DATE OF SERVICE: 12/06/2020 REASON FOR FOLLOWUP: Right lower extremity wound and a question of cellulitis. INTERVAL HISTORY: The patient is currently mildly hypothermic, on a warming blanket. The patient is slightly lethargic and remains on BiPAP. He is unable to provide any history. No vomiting, diarrhea or any other changes reported by the nursing staff. PHYSICAL EXAMINATION: Blood pressure 110/67, pulse of 122, temperature 94.4. He is 89% on BiPAP. General description is a middle-aged male lying in bed in no distress. RESPIRATORY SYSTEM: Unlabored breathing with decreased breath sounds at the base. No wheeze. HEART: S1, S2. Regular rate and rhythm. ABDOMEN: Soft. No tenderness. Right lower extremity has blister formation, superficial ulceration. No significant redness or foul-smelling drainage. LABS: Hemoglobin is 13.3, white count 20.2. Creatinine is 2.10. Pleural fluid cultures currently pending. Blood culture so far negative. DIAGNOSTIC IMPRESSION AND PLAN: Patient with acute respiratory failure which is likely multifactorial, likely secondary to fluid overload plus/minus pneumonia not entirely excluded, with evidence of bilateral effusion, status post those cultures are currently pending. In view of overall clinical condition, elevated white count and hypothermia, will cover with Zosyn empirically while waiting for his condition to stabilize. Right lower extremity wound local care with a dry Aquacel Silver dressing and Horace wrap, which was discussed with the RN. Family at the bedside. Their questions were answered. MMODL / JAMSHIDN: [id number] /
[2020-12-06] MEDS: PIPERACILLIN-TAZOBACTAM 3.375 GM in SODIUM CHLORIDE 0.9% 100 ML IVPB SCH (17:13)
[2020-12-06] MEDS: NOREPINEPHRINE 8 MG in SODIUM CHLORIDE 0.9% 250 ML IV SCH ×2 (17:16→22:20)
[2020-12-06 18:03] LABS: Glucose,Whole Blood 175 mg/dL (75-99)
[2020-12-06] MEDS: EZETIMIBE 10 MG TAB PO SCH (18:04)
[2020-12-06] MEDS: FLUoxetine HCL 10 MG CAP PO SCH (18:04)
[2020-12-06 19:40] VITALS: BP 103/90
[2020-12-06 20:24] LABS: Calcium 9.7 mg/dL (8.4-10.2); Potassium 5.9 mmol/L (3.5-5.1)
[2020-12-06] MEDS: ATORVASTATIN 40 MG TAB PO SCH (20:27)
[2020-12-06] MEDS ORDERED: MELATONIN 1 MG TAB PO SCH (21:00)
[2020-12-06] MEDS: AMIODARONE 360 MG in DEXTROSE 5% IN WATER 200 ML IV ONE ×2 (21:48)
[2020-12-06 23:59] LABS: Glucose,Whole Blood 188 mg/dL (75-99)
[2020-12-07] MEDS: methylPREDNISolone SOD SUCCI 125 MG/2 ML VIAL IV SCH ×2 (00:35→06:33)
[2020-12-07] MEDS: INSULIN ASPART (NovoLOG) 100 UNIT/ML VIAL SQ SCH ×2 (00:35→06:33)
[2020-12-07] MEDS: PIPERACILLIN-TAZOBACTAM 3.375 GM in SODIUM CHLORIDE 0.9% 100 ML IVPB SCH ×2 (00:42→08:46)
[2020-12-07] MEDS: HEPARIN SODIUM,PORCINE 5,000 UNIT/ML 1 ML VIAL SQ SCH ×2 (00:42→08:46)
[2020-12-07] MEDS: AMIODARONE 360 MG in DEXTROSE 5% IN WATER 200 ML IV ONE ×2 (02:54)
[2020-12-07] MEDS: NOREPINEPHRINE 8 MG in SODIUM CHLORIDE 0.9% 250 ML IV SCH (02:56)
[2020-12-07] MEDS ORDERED: AMIODARONE 360 MG in DEXTROSE 5% IN WATER 200 ML IV ONE ×2 (05:20)
[2020-12-07 05:29] LABS: HCT 36.7 % (39.0-53.0); HGB 11.4 gm/dL (13.0-17.5); Hypochromasia Moderate; MCH 30.5 pg (25.0-35.0); MCV 98.2 fL (80.0-100.0); Macrocytosis Slight; Platelet Count 191 k/uL (150-450); RBC 3.74 m/uL (4.30-5.90); RDW 15.8 % (11.5-15.5); WBC 11.3 k/uL (3.8-10.6)
[2020-12-07 05:34] LABS: Albumin 3.1 g/dL (3.5-5.0); Calcium 9.3 mg/dL (8.4-10.2); Potassium 5.8 mmol/L (3.5-5.1); Total Bilirubin 0.3 mg/dL (0.2-1.3); Total Protein 5.8 g/dL (6.3-8.2)
[2020-12-07 06:25] LABS: Glucose,Whole Blood 182 mg/dL (75-99)
[2020-12-07] MEDS: LEVOTHYROXINE 100 MCG TAB PO SCH (06:34)
[2020-12-07] MEDS: IPRATROPIUM-ALBUTEROL 3 ML NEB INHALATION SCH (07:28)
[2020-12-07] MEDS ORDERED: AMIODARONE 450 MG in DEXTROSE 5% IN WATER 250 ML IV SCH ×2 (07:45)
[2020-12-07 08:14] VITALS: TEMP 96.3
[2020-12-07] MEDS ORDERED: FUROSEMIDE 10 MG/ML 10 ML VIAL IV SCH (09:00)
[2020-12-07] MEDS: EZETIMIBE 10 MG TAB PO SCH (09:00)
[2020-12-07] MEDS: allopurinoL 100 MG TAB PO SCH (09:00)
[2020-12-07] MEDS: CHOLECALCIFEROL 25 MCG (1000 IU) TABLET PO SCH (09:00)
[2020-12-07] MEDS: MAGNESIUM OXIDE 400 MG TAB PO SCH (09:01)
[2020-12-07] MEDS: FLUoxetine HCL 10 MG CAP PO SCH (09:01)
[2020-12-07] MEDS: PANTOPRAZOLE 40 MG/10 ML VIAL IVP SCH (09:02)
[2020-12-07] MEDS: CLOTRIMAZOLE 1% CREAM 30 GM TUBE TOPICAL SCH (09:02)
[2020-12-07] MEDS: INSULIN DETEMIR (LEVEMIR) 100 UNIT/ML SYR SQ SCH (09:06)
--- NOTE | 2020-12-07 10:20 | PN ---
PROGRESS NOTE Mr. Shen is a gentleman with COPD exacerbation, respiratory failure, pleural effusion that was tapped and went into atrial fib yesterday. He has gone back and forth from sinus to atrial fibrillation but now remains in atrial fib. Yesterday apparently he had an episode when his BiPAP was off, he became quite bradycardic and Cardizem and amiodarone combination were on and these were discontinued. He is now on amiodarone at about 1 mg drip. I am suggesting that we discontinue amiodarone and see how he does. If his rate is reasonably well controlled we do not need amiodarone at this time. So far septic workup does not reveal any source of any organisms. Most of the cultures seem to be negative. I am suggesting that we discontinue amiodarone for now. Continue his other medications. Overall prognosis for this patient appears to be quite poor. He is also on Levophed which is down to 10 mics from 30 yesterday. His other comorbid conditions include diabetes, hypertension, smoking and COPD. His hyperkalemia which was an issue is also much better at 5.8. Nephrology is also following the patient. The patient is on 10 mics of Levophed. PHYSICAL EXAM: Revealed blood pressure of 110/70, pulse rate about 82 per minute. JVD is 1-2 cm. No carotid bruit. S1/S2 heard normally with irregularity in rhythm, short systolic murmur. Lungs reveal diminished air entry. Abdomen and lower extremity exam is unremarkable. RECOMMENDATIONS: Heart rate is well controlled and he had some pauses yesterday, therefore, I will recommend we discontinue amiodarone and see how he does. Overall prognosis is guarded and we will continue to follow. MMODL / IJN: [id number] /
[2020-12-07] MEDS ORDERED: ATROPINE OPHTH SOLN 1% 5ML BTL SUBLINGUAL PRN (10:23)
[2020-12-07] MEDS ORDERED: MORPHINE SULFATE 4 MG/ML SYRINGE IVP ONE (10:23)
[2020-12-07] MEDS ORDERED: ONDANSETRON 4 MG/2 ML VIAL IVP PRN (10:23)
[2020-12-07] MEDS ORDERED: MORPHINE SULFATE 2 MG/ML SYRINGE IV PRN (10:23)
[2020-12-07] MEDS ORDERED: LORazepam 2 MG/ML INJ IV PRN (10:23)
[2020-12-07 11:02] VITALS: PULSE 72; RESP 8
--- NOTE | 2020-12-07 11:45 | XR ---
EXAMINATION TYPE: XR chest 1V portable DATE OF EXAM: 12/07/2020 COMPARISON: 12/06/2020 INDICATION: Shortness breath TECHNIQUE: Single frontal view of the chest is obtained. FINDINGS: The heart size is normal. The pulmonary vasculature is prominent. Bibasilar infiltrates are present. Small left and [id number] right pleural effusions are prese nt. IMPRESSION: 1. Bibasilar infiltrates and pleural effusions, stable from comparison.
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
--- NOTE | 2020-12-07 13:51 | PN ---
PROGRESS NOTE Patient is seen for followup for acute kidney injury. Patient's urine output has been borderline. It has actually been about 0 to 5 mL for the last 5-6 hours. He did receive a dose of Lasix with no improvement in urine output. Currently patient is maintained on BiPAP. He is not communicating much. There is discussion for possible hospice care. The patient is currently NO CODE, NO INTUBATION. Potassium has been staying at 5.9-5.8 mEq/L. Serum creatinine today is at 2.49. EXAMINATION: Today patient is on BiPAP. Blood pressure was 103/62, heart rate 73 per minute, he is afebrile. He is not responding much to verbal stimuli. Abdomen is soft, nontender. Examination of the lungs, bilateral breath sounds are heard. Examination of lower extremities shows chronic skin changes. [employer] exam cannot be assessed. LAB: Show sodium 139, potassium 5.8, chloride 106, BUN 76, creatinine 2.49, hemoglobin 11.5 g/dL. ASSESSMENT: 1. Acute kidney injury, acute tubular necrosis associated with hypotension and cardiorenal. The patient is also hyperkalemic with no significant urine output. He will need dialysis if there is plan to continue with aggressive medical therapy. There is discussion for possible hospice care, comfort care options. 2. Hyperkalemia associated with acute kidney injury. Potassium remains elevated. If there are plans to pursue aggressive medical care patient will need dialysis. 3. Atrial fibrillation with RVR status post amiodarone. 4. Acute on chronic systolic congestive heart failure. 5. Right pleural effusion status post thoracentesis. PLAN: Renal replacement therapy if no plans for hospice/comfort care. Overall prognosis is guarded. MMODL / IJN: [id number] /
[2020-12-09] MEDS ORDERED: NON FORMULARY DRUG (Semaglutide [Ozempic] 0.25 MG/0.2 ML Pen.Injctr) SQ SCH (08:03)
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
== END 2020-12-07 15:47 | disposition expired | DRG 291 ==
LOC: EC 18:48 → 3SCARD 21:27 → 2SICU 12-04 18:35
PROVIDERS: ADMIT Family Medicine; ATTEND Family Medicine
PROC: 5A09357 Assistance with Respiratory Ventilation, Less than 24 Consecutive Hours, Continuous Positive Airway Pressure (ICD-10-PCS; principal; 2020-12-03)
PROC: 3E033XZ Introduction of Vasopressor into Peripheral Vein, Percutaneous Approach (ICD-10-PCS; 2020-12-03)
PROC: 5A09457 Assistance with Respiratory Ventilation, 24-96 Consecutive Hours, Continuous Positive Airway Pressure (ICD-10-PCS; 2020-12-04)
PROC: 0W993ZX Drainage of Right Pleural Cavity, Percutaneous Approach, Diagnostic (ICD-10-PCS; 2020-12-05)
PROC: 4A133J1 Monitoring of Arterial Pulse, Peripheral, Percutaneous Approach (ICD-10-PCS; 2020-12-06)
PROC: 04HY32Z Insertion of Monitoring Device into Lower Artery, Percutaneous Approach (ICD-10-PCS; 2020-12-06)
PROC: 06HM33Z Insertion of Infusion Device into Right Femoral Vein, Percutaneous Approach (ICD-10-PCS; 2020-12-06)
PROC: 4A133B1 Monitoring of Arterial Pressure, Peripheral, Percutaneous Approach (ICD-10-PCS; 2020-12-06)
DX: I11.0 Hypertensive heart disease with heart failure (principal); A41.9 Sepsis, unspecified organism; J96.02 Acute respiratory failure with hypercapnia; J96.01 Acute respiratory failure with hypoxia; N17.0 Acute kidney failure with tubular necrosis; R65.21 Severe sepsis with septic shock; E87.2 Acidosis; J44.1 Chronic obstructive pulmonary disease with (acute) exacerbation; J91.8 Pleural effusion in other conditions classified elsewhere; J98.11 Atelectasis; L97.919 Non-pressure chronic ulcer of unspecified part of right lower leg with unspecified severity; N39.0 Urinary tract infection, site not specified; R57.9 Shock, unspecified; I50.43 Acute on chronic combined systolic (congestive) and diastolic (congestive) heart failure; I48.91 Unspecified atrial fibrillation; I83.019 Varicose veins of right lower extremity with ulcer of unspecified site; F17.210 Nicotine dependence, cigarettes, uncomplicated; Z20.822 Contact with and (suspected) exposure to COVID-19; Z66 Do not resuscitate; Z51.5 Encounter for palliative care; Z79.4 Long term (current) use of insulin; E03.9 Hypothyroidism, unspecified; G89.29 Other chronic pain; E11.9 Type 2 diabetes mellitus without complications; E78.5 Hyperlipidemia, unspecified; E87.5 Hyperkalemia; F32.9 Major depressive disorder, single episode, unspecified; G47.00 Insomnia, unspecified; E11.40 Type 2 diabetes mellitus with diabetic neuropathy, unspecified; Z79.82 Long term (current) use of aspirin; Z79.890 Hormone replacement therapy; Z79.899 Other long term (current) drug therapy; Z82.49 Family history of ischemic heart disease and other diseases of the circulatory system; Z98.42 Cataract extraction status, left eye; Z98.41 Cataract extraction status, right eye; Z96.1 Presence of intraocular lens; Z96.643 Presence of artificial hip joint, bilateral; Z60.2 Problems related to living alone; M10.9 Gout, unspecified; Z87.828 Personal history of other (healed) physical injury and trauma
CPT/HCPCS: 36415; 36600; 71045; 76604; 76770; 80048; 80053; 81001; 82533; 82550; 82553; 82803; 82805; 82945; 83605; 83615; 83735; 83880; 84132; 84145; 84157; 84484; 85025; 85027; 85379; 85610; 85730; 87040; 87070; 87086; 87102; 87116; 87205; 87206; 87252; 87496; 87498; 87502; 87529; 87634; 87635; 87798; 88108; 88305; 89050; 93005; 93306; 94640; 94660; 94760; 96361; 96372; 96374; 96375; 96376; 99291